=== PATIENT | female | born 1945 | race Caucasian/White ===

== ENCOUNTER 2018-01-22 09:02 | Inpatient (IN) | payer MEDICARE, MEDICAID ==
--- NOTE | 2018-01-22 09:54 | ED Physician Chart ---
ED Chief Complaint/HPI - Patient Information Date Seen:: 01/22/18 Time Seen:: 09:48 Chief Complaint:: Confusion History of Present Illness:: 72 yo [place]araguan-speaking female was found lost on street by bystanders. She was then brought by police to ER for further evaluation and management. Patient was put on 5150 hold. Patient said she had some headache. She also had a wound on the left lower extremity. Allergies:: Allergies Allergy/AdvReac Type Severity Reaction Status Date / Time No Known Allergies Allergy Verified 01/22/18 09:26 Vitals:: Vital Signs - 8 hr 01/22/18 09:19 Temp 98.1 F HR 62 RR 16 BP 167/74 O2 Sat % 98 ED Review of Systems - Review of Systems General/Constitutional: No fever, No weakness Skin: No bruising Head: Headache Eyes: No pain ENT: No nasal drainage Neck: No neck pain Cardio Vascular: No chest pain Pulmonary: No SOB GI: No nausea, No vomiting Musculoskeletal: No bone or joint pain Neurological: No focal symptoms ED Past Medical History - Past Medical History Social History: Non Smoker, No Alcohol, No Drug Use Family Medical History - Family Member Mother History Unknown: Yes Ethnicity: Unknown Living Status: ED Physical Exam - Physical Examination General/Constitutional: Awake Head: Atraumatic Eyes: PERRL Skin: No ecchymosis ENMT: Nasal exam nl Neck: No nuchal rigidity Respiratory: No Wheeze/Rhonchi/Rales Cardio Vascular: RRR, No murmur, gallop, rubs, NL S1 S2 GI: No tenderness/rebounding/guarding Extremities: normal strength in all extremities Other Extremities comments:: left lateral distal leg a large ulcer (3cm x 3cm) stage II with small amount of purulent drainage Other Neuro/Psych comments:: oriented to self only ED Labs/Radiology/EKG Results - Lab Results Results: Lab - Result Diagrams 01/22/18 10:00 01/22/18 10:00 Laboratory Last Values WBC 7.2 Th/cmm (4.8-10.8) 01/22/18 10:00 RBC 4.74 Mil/cmm (3.80-5.20) 01/22/18 10:00 Hgb 15.7 gm/dL (12-16) 01/22/18 10:00 Hct 46.6 % (41.0-60) 01/22/18 10:00 MCV 98.3 fl (81-100) 01/22/18 10:00 MCH 33.2 pg (27.0-31.0) H 01/22/18 10:00 MCHC Differential 33.7 pg (28.0-36.0) 01/22/18 10:00 RDW 12.9 % (11.5-20.0) 01/22/18 10:00 Plt Count 234 Th/cmm (150-400) 01/22/18 10:00 MPV 9.5 fl 01/22/18 10:00 Neutrophils % 59.8 % (40.0-80.0) 01/22/18 10:00 Lymphocytes % 26.7 % (20.0-50.0) 01/22/18 10:00 Monocytes % 10.0 % (2.0-10.0) 01/22/18 10:00 Eosinophils % 2.6 % (0.0-5.0) 01/22/18 10:00 Basophils % 0.9 % (0.0-2.0) 01/22/18 10:00 Sodium 141 mEq/L (136-145) 01/22/18 10:00 Potassium 4.0 mEq/L (3.5-5.1) 01/22/18 10:00 Chloride 106 mEq/L (98-107) 01/22/18 10:00 Carbon Dioxide 28.5 mEq/L (21.0-31.0) 01/22/18 10:00 Anion Gap 10.5 (7.0-16.0) 01/22/18 10:00 BUN 19 mg/dL (7-25) 01/22/18 10:00 Creatinine 1.0 mg/dL (0.6-1.2) 01/22/18 10:00 Est GFR ( Amer) TNP 01/22/18 10:00 Est GFR (Non-Af Amer) TNP 01/22/18 10:00 BUN/Creatinine Ratio 19.0 01/22/18 10:00 Glucose 94 mg/dL (70-105) 01/22/18 10:00 Calcium 9.5 mg/dL (8.6-10.3) 01/22/18 10:00 Total Bilirubin 0.6 mg/dL (0.3-1.0) 01/22/18 10:00 AST 26 U/L (13-39) 01/22/18 10:00 ALT 19 U/L (7-52) 01/22/18 10:00 Alkaline Phosphatase 88 U/L (34-104) 01/22/18 10:00 Troponin I 0.03 ng/mL (0.01-0.05) 01/22/18 10:00 B-Natriuretic Peptide 91.7 pg/mL (5.0-100.0) 01/22/18 10:00 Total Protein 7.5 gm/dL (6.0-8.3) 01/22/18 10:00 Albumin 3.9 gm/dL (3.7-5.3) 01/22/18 10:00 Globulin 3.6 gm/dL 01/22/18 10:00 Albumin/Globulin Ratio 1.1 (1.0-1.8) 01/22/18 10:00 Urine Source RANDOM 01/22/18 10:25 Urine Color YELLOW 01/22/18 10:25 Urine Clarity TURBID (CLEAR) H 01/22/18 10:25 Urine pH 7.0 (4.6 - 8.0) 01/22/18 10:25 Ur Specific [place] 1.015 (1.005-1.030) 01/22/18 10:25 Urine Protein NEGATIVE mg/dL (NEGATIVE) 01/22/18 10:25 Urine Glucose (UA) NEGATIVE mg/dL (NEGATIVE) 01/22/18 10:25 Urine Ketones NEGATIVE mg/dL (NEGATIVE) 01/22/18 10:25 Urine Blood TRACE (NEGATIVE) 01/22/18 10:25 Urine Nitrate NEGATIVE (NEGATIVE) 01/22/18 10:25 Urine Bilirubin NEGATIVE (NEGATIVE) 01/22/18 10:25 Urine Urobilinogen 0.2 E.U./dL (0.2 - 1.0) 01/22/18 10:25 Ur Leukocyte Esterase TRACE (NEGATIVE) H 01/22/18 10:25 Urine RBC 2-5 /hpf (0-5) 01/22/18 10:25 Urine WBC 2-5 /hpf (0-5) 01/22/18 10:25 Ur Epithelial Cells OCCASIONAL /lpf (FEW) 01/22/18 10:25 Amorphous Sediment FEW URATES (NONE SEEN) 01/22/18 10:25 Urine Bacteria 1+ /hpf (NONE SEEN) H 01/22/18 10:25 Urine Mucus FEW /lpf (FEW) 01/22/18 10:25 Urine Opiates Screen NEGATIVE (NEGATIVE) 01/22/18 10:25 Urine Methadone Screen NEGATIVE (NEGATIVE) 01/22/18 10:25 Ur Barbiturates Screen NEGATIVE (NEGATIVE) 01/22/18 10:25 Ur Tricyclics Screen NEGATIVE (NEGATIVE) 01/22/18 10:25 Ur Phencyclidine Scrn NEGATIVE (NEGATIVE) 01/22/18 10:25 Amphetamines Screen NEGATIVE (NEGATIVE) 01/22/18 10:25 U Methamphetamines Scrn NEGATIVE (NEGATIVE) 01/22/18 10:25 U Benzodiazepines Scrn NEGATIVE (NEGATIVE) 01/22/18 10:25 U Cocaine Metab Screen NEGATIVE (NEGATIVE) 01/22/18 10:25 U Cannabinoids Screen NEGATIVE (NEGATIVE) 01/22/18 10:25 - Radiology Results Results: CXR: increased interstitial lung markings, congestion, mild cardiomegaly CT head without contrast: No acute intracranial hemorrhage. Atrophy. Mild supratentorial white matter disease. Small parenchymal calcifications. Shrunken left globe - EKG Interpretations EKG Time:: 10:05 Rate & Rhythm: 52 bpm, sinus rhythm Ephraim: normal axis Intervals: atypical LBBB ED Assessment - Assessment General Assessment: UTI Left lower extremity wound Hypertension Dementia 5150 hold Assessment/Comments:: CBC, CMP, UA CXR, EKG CT head Left lower extremity wound care Wound culture Rocephin 1g IM Admit to geropsych unit ED Septic Shock - . Is Septic Shock (SBP<90, OR Lactate>4 mmol\L) present?: No - <6hrs of presentation: Vital Signs: Vital Signs - 8 hr 01/22/18 09:19 Temp 98.1 F HR 62 RR 16 BP 167/74 O2 Sat % 98 ED Reassessment (Disposition) - Reassessment Reassessment Condition:: Improved - Patient Disposition Discharge/Transfer:: [place] w/in this hosp Admitting Medical Physician:: [place] Admitting Psych Physician:: Malka Veras ED Discharge Plan - Patient Disposition Admit/Discharge/Transfer: Other Care w/in this hosp Condition at Disposition: Stable
[2018-01-22 10:14] LABS: % BASOPHILS 0.9 % (0.0-2.0); % EOSINOPHILS 2.6 % (0.0-5.0); % LYMPHOCYTES 26.7 % (20.0-50.0); % NEUTROPHILS 59.8 % (40.0-80.0); BASOPHILE ABSOLUTE 0.1 Th/cumm (0-0.2); EOSINOPHILE ABSOLUTE 0.2 Th/cmm (0.1-0.4); HEMATOCRIT 46.6 % (41.0-60); HEMOGLOBIN 15.7 gm/dL (12-16); LYMPHOCYTE ABSOLUTE 1.9 Th/cmm (1.5-3.0); MEAN CELL VOLUME 98.3 fl (81-100); MEAN CORPUSCULAR HEMOGLOBIN 33.2 pg (27.0-31.0); MEAN CORPUSCULAR HGB CONC 33.7 pg (28.0-36.0); MEAN PLATELET VOLUME 9.5 fl; MONOCYTE ABSOLUTE 0.7 Th/cmm (0.3-1.0); NEUTROPHILE ABSOLUTE 4.3 Th/cmm (1.8-8.0); PLATELET COUNT 234 Th/cmm (150-400); RED BLOOD COUNT 4.74 Mil/cmm (3.80-5.20); RED CELL DISTRIBUTION WIDTH 12.9 % (11.5-20.0); WHITE BLOOD COUNT 7.2 Th/cmm (4.8-10.8)
[2018-01-22 10:43] LABS: ALB/GLOB RATIO 1.1 (1.0-1.8); ALBUMIN 3.9 gm/dL (3.7-5.3); ALKALINE PHOSPHATASE 88 U/L (34-104); ANION GAP 10.5 (7.0-16.0); BILIRUBIN,TOTAL 0.6 mg/dL (0.3-1.0); BUN - UREA NITROGEN 19 mg/dL (7-25); CALCIUM SERUM 9.5 mg/dL (8.6-10.3); CARBON DIOXIDE 28.5 mEq/L (21.0-31.0); CHLORIDE 106 mEq/L (98-107); GLUCOSE 94 mg/dL (70-105); SGOT 26 U/L (13-39); SGPT/ALT 19 U/L (7-52); SODIUM SERUM 141 mEq/L (136-145); TOTAL PROTEIN,SERUM 7.5 gm/dL (6.0-8.3)
[2018-01-22 10:46] LABS: URINE MICROSCOPIC INDICATED? YES; URINE SOURCE RANDOM
[2018-01-22 10:51] LABS: URINE BILIRUBIN NEGATIVE (NEGATIVE); URINE BLOOD TRACE (NEGATIVE); URINE GLUCOSE (UA) NEGATIVE (NEGATIVE); URINE KETONE NEGATIVE (NEGATIVE); URINE LEUKOCYTE ESTERASE TRACE (NEGATIVE); URINE NITRATE NEGATIVE (NEGATIVE); URINE PROTEIN NEGATIVE (NEGATIVE); URINE UROBILINOGEN 0.2 E.U./dL (0.2 - 1.0)
[2018-01-22 10:58] LABS: URINE CLARITY TURBID (CLEAR); URINE COLOR YELLOW
[2018-01-22 11:00] LABS: URINE EPITHELIAL CELLS OCCASIONAL /lpf (FEW)
[2018-01-22 11:01] LABS: URINE AMORPHOUS SEDIMENT FEW URATES (NONE SEEN); URINE BACTERIA 1+ /hpf (NONE SEEN)
[2018-01-22 11:17] LABS: AMPHETAMINE URINE NEGATIVE (NEGATIVE); BARBITURATES URINE NEGATIVE (NEGATIVE); BENZODIAZEPINES QUAL URINE NEGATIVE (NEGATIVE); CANNABINOID THC NEGATIVE (NEGATIVE); COCAINE METABOLITE QUAL URINE NEGATIVE (NEGATIVE); METHADONE URINE NEGATIVE (NEGATIVE); METHAMPHETAMINES QUAL URINE NEGATIVE (NEGATIVE); OPIATES (MORPHINE) QUAL. URINE NEGATIVE (NEGATIVE); PHENCYCLIDINE (PCP) URINE NEGATIVE (NEGATIVE); TRICYCLICS (TCA) QUAL. URINE NEGATIVE (NEGATIVE)
--- NOTE | 2018-01-22 11:18 | Diagnostic Imaging Report ---
CHEST X-RAY: AP view INDICATION: Shortness of breath COMPARISON: None FINDINGS: Mild increased interstitial lung markings are noted. No focal consolidation or effusions. Mild cardiomegaly is noted with atherosclerosis. Degenerative changes of the spine and shoulders are noted. IMPRESSION: Mild increased interstitial lung markings which may be due to chronic lung changes, however, a marginal degree of congestion cannot be excluded. No focal airspace consolidation identified. Mild cardiomegaly with atherosclerosis.
--- NOTE | 2018-01-22 11:24 | Diagnostic Imaging Report ---
Head CT without intravenous contrast Indication: Headache Comparison: None Technique: Axial images were obtained from the vertex to the skull base without IV contrast. Coronal reconstructions were made. Total DLP: 557, CTDI31.3 FINDINGS: Images of the brain obtained without contrast demonstrate no evidence of an acute hemorrhage. A few scattered small calcifications are noted. Atrophy is noted. The ventricles and basal cisterns are patent. No mass effect or midline shift. Mild white matter disease is noted. Mild atherosclerotic vascular disease is noted. Shrunken and calcified left globe is noted with postsurgical changes. No evidence of a skull fracture or focal soft tissue swelling there is mild mucosal thickening in paranasal sinuses. IMPRESSION: No evidence of an acute intracranial hemorrhage. Atrophy. Mild supratentorial white matter disease which is nonspecific and may be due to chronic microvessel ischemia. 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 Shrunken left globe with calcification and postsurgical changes, please correlate with clinical history. Mild atherosclerotic vascular disease.
[2018-01-22 14:30] VITALS: BP 137/78
[2018-01-22] MEDS ORDERED: Maalox 30 mL Cup PO PRN (14:31)
[2018-01-22] MEDS ORDERED: Magnesium Hydroxide (MOM) 30 mL UDC PO PRN (14:31)
[2018-01-22 18:05] LABS: A1C % 5.4 % (4.0-6.0)
[2018-01-23] MEDS: Multivitamin Tab PO SCH (09:46)
[2018-01-23] MEDS: Venelex 60gm Tube TP SCH (13:56)
--- NOTE | 2018-01-24 06:06 | History & Physical ---
ADMIT DATE: 01/22/2018 REASON FOR ADMISSION: Psychiatric disorder. HISTORY OF PRESENT ILLNESS: This is a 72-year-old female admitted to Geropsych Unit for underlying psychiatric illness by Dr. Veras. Dr. Veras requested medical H and P on this patient. The patient has underlying history of hypertension. The patient denies any medical complaints or concerns. PAST MEDICAL HISTORY: Hypertension, dementia, psych disorder, insomnia. PAST SURGICAL HISTORY: No significant past surgeries. SOCIAL HISTORY: Lives at home. No reported alcohol, tobacco, or street drug use. CURRENT MEDICATIONS: Tylenol, Maalox, Aricept, Ativan, milk of magnesia, Lopressor, Theragran, Ambien. REVIEW OF SYSTEMS: per HPI, a 12-point system appears negative. PHYSICAL EXAMINATION: VITAL SIGNS: Temperature 98.0, pulse 55, respirations 20, blood pressure ____ on room air. Pain 0/10. GENERAL APPEARANCE: The patient does not seem in acute distress. HEENT: Unremarkable. HEART: S1 and S2 normal. LUNGS: Clear to auscultation. ABDOMEN: Soft, nontender. NEUROLOGIC: The patient is awake, but somewhat confused. Follows commands. EXTREMITIES: No edema noted. AVAILABLE LABORATORY DATA: Reviewed. ASSESSMENT: 1. Hypertension. 2. Dementia. 3. Insomnia. 4. Mental disorder. PLAN: The patient will continue Lopressor. Continue Aricept. Psych management per psychiatrist. Monitor vitals. Fall precautions will be given. The patient's condition and plan of care discussed with nursing staff. The patient is medically stable to participate in activities of Geropsych Unit. Thank you Dr. Veras for allowing me participate in the care of this patient. JOB# [id number]
[2018-01-24] MEDS: Multivitamin Tab PO SCH (08:46)
[2018-01-24] MEDS: Venelex 60gm Tube TP SCH (08:47)
--- NOTE | 2018-01-24 18:08 | Psychosocial Evaluation ---
DATE OF SERVICE: 01/22/2018 PSYCHIATRIC INITIAL EVALUATION AND MENTAL STATUS EXAM AGE: 72. SEX: Female. PHYSICIAN: Dr. Veras. CHIEF COMPLAINT: 5150 hold for grave disability. HISTORY OF PRESENT ILLNESS: The patient was placed on 5150 hold by [facility] for grave disability. The patient was walking in the middle of a busy freeway regardless of her safety, but also was confused and was disoriented and she was not able to give the officers any safe plan for self-care. Also she was not able to tell where is her address or when was the last time she ate. The patient also 2 weeks. The patient also had no ID or money or any belonging. Chart reviewed and the patient interviewed and discussed the patient's condition with the staff. The patient is confused. She is [place]ian speaking and she was not able to give any directions or instructions about her current condition or above eating or drinking or how she can survive. The patient also is not able to give any information about any medical history except the patient was complaining of some headache upon arrival to the Emergency Room. PAST PSYCHIATRIC HISTORY: Not known. PAST MEDICAL HISTORY: Not known. SOCIAL HISTORY: Not clear at this time much history about the patient. No known alcohol or street drug use. ALLERGIES: No known allergies. MENTAL STATUS EXAMINATION: The patient appears older than her stated age. Disheveled. Anxious. Flat affect. In a depressed mood. Seems to be confused. The patient's speaks only [place]ian. The patient did not answer questions regarding hallucinations or delusions, but the patient seems to be responding. The patient denies any suicide or homicide. The patient is alert and oriented to situation, but not to the place or person or date. Impaired immediate and recent memories, but intact remote memory and she remember the date. Poor insight and poor judgment. ASSESSMENT: PRIMARY DIAGNOSIS: Unspecified psychosis. SECONDARY DIAGNOSIS: Dementia, moderate to severe. TREATMENT PLAN: We will monitor the patient's behavior and her condition closely. We will try to get more information of the patient. Also, we will assess the patient's condition more and try to evaluate current living situation. ESTIMATED LENGTH OF STAY: 5-7 days. THE PATIENT'S STRENGTHS AND WEAKNESSES: The patient's strength is not clear at this time except that she seems to be in relatively fair health. Weaknesses is her confusion and her inability to provide safe plan for self-care. AFTER DISCHARGE PLAN: The patient will need placement and outpatient treatment and followup will continue as an outpatient. CRITERIA FOR DISCHARGE: The patient will not be psychotic and will stabilize psychotropic medications and we will establish safe plan for her self-care. [facility]# [id number]
--- NOTE | 2018-01-24 23:49 | Progress Notes ---
DATE: 01/24/2018 SUBJECTIVE: The patient was seen and evaluated. The patient's chart reviewed. This is Dr. Prajapati covering for Dr. Veras. She is a 72-year-old female, who was apparently here with a history of severe dementia. Nursing staff reporting the patient mostly being confused, derails in conversation, and minimally interactive. CURRENT MEDICATIONS: Reviewed. She is currently on Ativan as needed, metoprolol, multivitamins, and Aricept (donepezil) 10 mg a day. Today on vvgv-dd-iote evaluation, the patient is sitting quietly. She reports she lives with her sister, but is not able to elaborate much more beyond that. She does not know why she is in the hospital. She gets anxious and confused during the interview. MENTAL STATUS EXAMINATION: Disorganized, memory impaired. ASSESSMENT AND PLAN: The patient is a 72-year-old female neurocognitively impaired with dementia. We will continue with Aricept at 10 mg and we will obtain more collateral baseline information and we established also baseline regarding the patient's mood. She may potentially benefit a low dose of antidepressant. JOB# [id number]
[2018-01-25] MEDS: Multivitamin Tab PO SCH (09:35)
[2018-01-25] MEDS: Venelex 60gm Tube TP SCH (09:37)
--- NOTE | 2018-01-25 18:23 | Progress Notes ---
DATE: 01/25/2018 SUBJECTIVE: The patient was seen and evaluated. The patient's chart reviewed. Overnight, nursing staff reported the patient continues to be very confused. Today on vwel-jg-knut evaluation, the patient reports that she is waiting for her family. She reports she is here for pain. Does not give much more information beyond that as the conversation derailed from circumstantial to another topic. MENTAL STATUS EXAMINATION: Disorganized, severe memory impairment. ASSESSMENT AND PLAN: A 72-year-old female with neurocognitive impair, unable to formulate a plan. We will continue with Aricept at 10 mg to target the patient's severe dementia information from her family and baseline in regard to her mood. JOB# [id number]
--- NOTE | 2018-01-25 21:18 | General Progress Note ---
Subjective - Review of Systems Service Date: 01/25/18 Subjective: patient doing fine denied any complaints Objective - Results Result Diagrams: 01/22/18 10:00 01/22/18 10:00 Recent Labs: Laboratory Last Values WBC 7.2 Th/cmm (4.8-10.8) 01/22/18 10:00 RBC 4.74 Mil/cmm (3.80-5.20) 01/22/18 10:00 Hgb 15.7 gm/dL (12-16) 01/22/18 10:00 Hct 46.6 % (41.0-60) 01/22/18 10:00 MCV 98.3 fl (81-100) 01/22/18 10:00 MCH 33.2 pg (27.0-31.0) H 01/22/18 10:00 MCHC Differential 33.7 pg (28.0-36.0) 01/22/18 10:00 RDW 12.9 % (11.5-20.0) 01/22/18 10:00 Plt Count 234 Th/cmm (150-400) 01/22/18 10:00 MPV 9.5 fl 01/22/18 10:00 Neutrophils % 59.8 % (40.0-80.0) 01/22/18 10:00 Lymphocytes % 26.7 % (20.0-50.0) 01/22/18 10:00 Monocytes % 10.0 % (2.0-10.0) 01/22/18 10:00 Eosinophils % 2.6 % (0.0-5.0) 01/22/18 10:00 Basophils % 0.9 % (0.0-2.0) 01/22/18 10:00 Sodium 141 mEq/L (136-145) 01/22/18 10:00 Potassium 4.0 mEq/L (3.5-5.1) 01/22/18 10:00 Chloride 106 mEq/L (98-107) 01/22/18 10:00 Carbon Dioxide 28.5 mEq/L (21.0-31.0) 01/22/18 10:00 Anion Gap 10.5 (7.0-16.0) 01/22/18 10:00 BUN 19 mg/dL (7-25) 01/22/18 10:00 Creatinine 1.0 mg/dL (0.6-1.2) 01/22/18 10:00 Est GFR ( Amer) TNP 01/22/18 10:00 Est GFR (Non-Af Amer) TNP 01/22/18 10:00 BUN/Creatinine Ratio 19.0 01/22/18 10:00 Glucose 94 mg/dL (70-105) 01/22/18 10:00 Hemoglobin A1c % 5.4 % (4.0-6.0) 01/22/18 10:00 Calcium 9.5 mg/dL (8.6-10.3) 01/22/18 10:00 Total Bilirubin 0.6 mg/dL (0.3-1.0) 01/22/18 10:00 AST 26 U/L (13-39) 01/22/18 10:00 ALT 19 U/L (7-52) 01/22/18 10:00 Alkaline Phosphatase 88 U/L (34-104) 01/22/18 10:00 Troponin I 0.03 ng/mL (0.01-0.05) 01/22/18 10:00 B-Natriuretic Peptide 91.7 pg/mL (5.0-100.0) 01/22/18 10:00 Total Protein 7.5 gm/dL (6.0-8.3) 01/22/18 10:00 Albumin 3.9 gm/dL (3.7-5.3) 01/22/18 10:00 Globulin 3.6 gm/dL 01/22/18 10:00 Albumin/Globulin Ratio 1.1 (1.0-1.8) 01/22/18 10:00 TSH 1.68 uIU/ml (0.34-5.60) 01/22/18 10:00 Urine Source RANDOM 01/22/18 10:25 Urine Color YELLOW 01/22/18 10:25 Urine Clarity TURBID (CLEAR) H 01/22/18 10:25 Urine pH 7.0 (4.6 - 8.0) 01/22/18 10:25 Ur Specific [place] 1.015 (1.005-1.030) 01/22/18 10:25 Urine Protein NEGATIVE mg/dL (NEGATIVE) 01/22/18 10:25 Urine Glucose (UA) NEGATIVE mg/dL (NEGATIVE) 01/22/18 10:25 Urine Ketones NEGATIVE mg/dL (NEGATIVE) 01/22/18 10:25 Urine Blood TRACE (NEGATIVE) 01/22/18 10:25 Urine Nitrate NEGATIVE (NEGATIVE) 01/22/18 10:25 Urine Bilirubin NEGATIVE (NEGATIVE) 01/22/18 10:25 Urine Urobilinogen 0.2 E.U./dL (0.2 - 1.0) 01/22/18 10:25 Ur Leukocyte Esterase TRACE (NEGATIVE) H 01/22/18 10:25 Urine RBC 2-5 /hpf (0-5) 01/22/18 10:25 Urine WBC 2-5 /hpf (0-5) 01/22/18 10:25 Ur Epithelial Cells OCCASIONAL /lpf (FEW) 01/22/18 10:25 Amorphous Sediment FEW URATES (NONE SEEN) 01/22/18 10:25 Urine Bacteria 1+ /hpf (NONE SEEN) H 01/22/18 10:25 Urine Mucus FEW /lpf (FEW) 01/22/18 10:25 Urine Opiates Screen NEGATIVE (NEGATIVE) 01/22/18 10:25 Urine Methadone Screen NEGATIVE (NEGATIVE) 01/22/18 10:25 Ur Barbiturates Screen NEGATIVE (NEGATIVE) 01/22/18 10:25 Ur Tricyclics Screen NEGATIVE (NEGATIVE) 01/22/18 10:25 Ur Phencyclidine Scrn NEGATIVE (NEGATIVE) 01/22/18 10:25 Amphetamines Screen NEGATIVE (NEGATIVE) 01/22/18 10:25 U Methamphetamines Scrn NEGATIVE (NEGATIVE) 01/22/18 10:25 U Benzodiazepines Scrn NEGATIVE (NEGATIVE) 01/22/18 10:25 U Cocaine Metab Screen NEGATIVE (NEGATIVE) 01/22/18 10:25 U Cannabinoids Screen NEGATIVE (NEGATIVE) 01/22/18 10:25 RPR NONREACTIVE (NONREACTIVE) 01/22/18 10:00 - Physical Exam Vitals and I&O: Vital Signs Temp 98.8 F 01/25/18 20:22 Pulse 58 01/25/18 20:22 Resp 19 01/25/18 20:22 BP 129/78 01/25/18 20:22 Pulse Ox 97 01/25/18 20:22 Intake & Output 01/25/18 01/25/18 01/26/18 06:59 18:59 06:59 Intake Total 480 900 240 Balance 480 900 240 Intake: Oral 480 900 240 Other: # Voids 1 4 1 # Bowel Movements 1 Active Medications: Current Medications Acetaminophen (Tylenol) 650 mg PO Q4HR PRN PRN Reason: Mild Pain / Temp above 100 Stop: 03/23/18 14:30 Al Hydrox/Mg Hydrox/Simethicone (Maalox) 30 ml PO Q4HR PRN PRN Reason: GI DISTRESS Stop: 03/23/18 14:30 Belen Oil/Belarusian Balsam/Trypsin (Venelex) 1 appl TP DAILY AKILAH Stop: 03/24/18 11:59 Last Admin: 01/25/18 09:37 Dose: 1 appl Donepezil HCl (Aricept) 10 mg PO HS AKILAH Stop: 03/24/18 22:59 Last Admin: 01/24/18 21:11 Dose: 10 mg Lorazepam (Ativan) 0.5 mg PO Q4HR PRN; Protocol PRN Reason: Agitation Stop: 02/21/18 14:30 Magnesium Hydroxide (Milk Of Magnesia) 30 ml PO HS PRN PRN Reason: Constipation Metoprolol Tartrate (Lopressor) 25 mg PO DAILY AKILAH Stop: 03/25/18 08:59 Last Admin: 01/25/18 09:35 Dose: 25 mg Multivitamins/Vitamin C (Theragran) 1 tab PO DAILY AKILAH Stop: 03/24/18 08:59 Last Admin: 01/25/18 09:35 Dose: 1 tab Zolpidem Tartrate (Ambien) 5 mg PO HS PRN PRN Reason: Insomnia Stop: 03/23/18 14:30 Lungs: Clear to auscultation Assessment/Plan - Assessment Assessment: HTN Alzheimers dementia Psych disorder - Plan Plan: Patient doing better Continue current treatment Nutritional Asmnt/Malnutr-PDOC - Dietary Evaluation Malnutrition Findings (Please click <Entered> for more info): Nutritional Asmnt/Malnutrition Start: 01/23/18 16: 30 Text: Status: Complete Freq: Document 01/23/18 16:30 HEN (Rec: 01/23/18 16:39 HEN [email or web address]) Nutritional Asmnt/Malnutrition Patient General Information Nutritional Screening Low Risk Consult Diagnosis psychosis Pertinent Medical Hx/Surgical Hx no medical hx indicated in MD reports. Subjective Information Consult received for left lateral ankle ulcer poss arterial insufficient. Pt was in bathroom at time of visit, [place] speaking noted. Spoke with nurse, Pt consumed 100% of breakfast and lunch. Current Diet Order/ Nutrition Support regular Pertinent Medications theragran Pertinent Labs 01/22 nutrition labs WNL Nutritional Hx/Data Height 1.57 m Height (Calculated Centimeters) 157.5 Current Weight (lbs) 68.946 kg Weight (Calculated Kilograms) 68.9 Weight (Calculated Grams) 65316.0 [place] Body Weight 110 Body Mass Index (BMI) 27.8 Weight Status Overweight GI Symptoms GI Symptoms None Last BM not indicated Difficult in: None Skin Integrity/Comment: Left Lateral Malleolus: possible arterial insufficiency ulcer per wound care note Current %PO Good (75-100%) Estimated Nutritional Goals Calories/Kcals/Kg 25-30 Kcals Calculated 2621-0043 Protein g/k-1.2 Protein Calculated 50-60 Fluid: ml 1250-1500ml (1ml/kcal) Nutritional Problem 1. Problem Problem increased nutrition needs Etiology impaired skin integrity Signs/Symptoms: arterial insufficiency ulcer Malnutrition Alert Is there a minimum of two criteria No selected? Query Text:Check all the applicable criteria. A minimum of two criteria are recommended for diagnosis of either severe or non-severe malnutrition. Malnutrition Related to Morbid Obesity Malnutrition related to morbid obesity No Intervention/Recommendation Comments 1. Continue with current diet as ordered. 2. Monitor PO intake, wt, labs and skin integrity 3. F/U as moderate risk in 3-5 days, 01/26-01/28 Expected Outcomes/Goals Expected Outcomes/Goals 1. PO intake to meet at least 75% of nutritional needs. 2. Wt stability, skin integrity to improve, labs to approach WNL.
--- NOTE | 2018-01-26 08:24 | Progress Notes ---
DATE: 01/26/2018 The patient was seen and evaluated. The patient's chart reviewed. Overnight nursing staff reported the patient continues to be confused, wandering in the wheelchair. Covering for Dr. Veras. Today on [id number]-ol-unov evaluation, the patient does not give much more information. She looks around and starts walking in her wheelchair. MENTAL STATUS EXAMINATION: Disorganized, severe memory impairment. ASSESSMENT AND PLAN: A 72-year-old female with a history of neurocognitive impairment, unable to formulate a safe plan. We will continue with her current medication regimen to target the patient's severe dementia, also we will obtain more collateral baseline information to the patient's disorganized thought process and confusion secondary to the dementia, impairs the ability to provide food and usp outside the structured environment. JOB# [id number]
[2018-01-26] MEDS: Multivitamin Tab PO SCH (09:26)
[2018-01-26] MEDS: Venelex 60gm Tube TP SCH (09:32)
[2018-01-27] MEDS: Multivitamin Tab PO SCH (08:58)
[2018-01-27] MEDS: Venelex 60gm Tube TP SCH (08:58)
--- NOTE | 2018-01-27 21:02 | General Progress Note ---
Subjective - Review of Systems Service Date: 01/27/18 Subjective: patient doing fine no reported concern Objective - Results Result Diagrams: 01/22/18 10:00 01/22/18 10:00 Recent Labs: Laboratory Last Values WBC 7.2 Th/cmm (4.8-10.8) 01/22/18 10:00 RBC 4.74 Mil/cmm (3.80-5.20) 01/22/18 10:00 Hgb 15.7 gm/dL (12-16) 01/22/18 10:00 Hct 46.6 % (41.0-60) 01/22/18 10:00 MCV 98.3 fl (81-100) 01/22/18 10:00 MCH 33.2 pg (27.0-31.0) H 01/22/18 10:00 MCHC Differential 33.7 pg (28.0-36.0) 01/22/18 10:00 RDW 12.9 % (11.5-20.0) 01/22/18 10:00 Plt Count 234 Th/cmm (150-400) 01/22/18 10:00 MPV 9.5 fl 01/22/18 10:00 Neutrophils % 59.8 % (40.0-80.0) 01/22/18 10:00 Lymphocytes % 26.7 % (20.0-50.0) 01/22/18 10:00 Monocytes % 10.0 % (2.0-10.0) 01/22/18 10:00 Eosinophils % 2.6 % (0.0-5.0) 01/22/18 10:00 Basophils % 0.9 % (0.0-2.0) 01/22/18 10:00 Sodium 141 mEq/L (136-145) 01/22/18 10:00 Potassium 4.0 mEq/L (3.5-5.1) 01/22/18 10:00 Chloride 106 mEq/L (98-107) 01/22/18 10:00 Carbon Dioxide 28.5 mEq/L (21.0-31.0) 01/22/18 10:00 Anion Gap 10.5 (7.0-16.0) 01/22/18 10:00 BUN 19 mg/dL (7-25) 01/22/18 10:00 Creatinine 1.0 mg/dL (0.6-1.2) 01/22/18 10:00 Est GFR ( Amer) TNP 01/22/18 10:00 Est GFR (Non-Af Amer) TNP 01/22/18 10:00 BUN/Creatinine Ratio 19.0 01/22/18 10:00 Glucose 94 mg/dL (70-105) 01/22/18 10:00 Hemoglobin A1c % 5.4 % (4.0-6.0) 01/22/18 10:00 Calcium 9.5 mg/dL (8.6-10.3) 01/22/18 10:00 Total Bilirubin 0.6 mg/dL (0.3-1.0) 01/22/18 10:00 AST 26 U/L (13-39) 01/22/18 10:00 ALT 19 U/L (7-52) 01/22/18 10:00 Alkaline Phosphatase 88 U/L (34-104) 01/22/18 10:00 Troponin I 0.03 ng/mL (0.01-0.05) 01/22/18 10:00 B-Natriuretic Peptide 91.7 pg/mL (5.0-100.0) 01/22/18 10:00 Total Protein 7.5 gm/dL (6.0-8.3) 01/22/18 10:00 Albumin 3.9 gm/dL (3.7-5.3) 01/22/18 10:00 Globulin 3.6 gm/dL 01/22/18 10:00 Albumin/Globulin Ratio 1.1 (1.0-1.8) 01/22/18 10:00 TSH 1.68 uIU/ml (0.34-5.60) 01/22/18 10:00 Urine Source RANDOM 01/22/18 10:25 Urine Color YELLOW 01/22/18 10:25 Urine Clarity TURBID (CLEAR) H 01/22/18 10:25 Urine pH 7.0 (4.6 - 8.0) 01/22/18 10:25 Ur Specific [place] 1.015 (1.005-1.030) 01/22/18 10:25 Urine Protein NEGATIVE mg/dL (NEGATIVE) 01/22/18 10:25 Urine Glucose (UA) NEGATIVE mg/dL (NEGATIVE) 01/22/18 10:25 Urine Ketones NEGATIVE mg/dL (NEGATIVE) 01/22/18 10:25 Urine Blood TRACE (NEGATIVE) 01/22/18 10:25 Urine Nitrate NEGATIVE (NEGATIVE) 01/22/18 10:25 Urine Bilirubin NEGATIVE (NEGATIVE) 01/22/18 10:25 Urine Urobilinogen 0.2 E.U./dL (0.2 - 1.0) 01/22/18 10:25 Ur Leukocyte Esterase TRACE (NEGATIVE) H 01/22/18 10:25 Urine RBC 2-5 /hpf (0-5) 01/22/18 10:25 Urine WBC 2-5 /hpf (0-5) 01/22/18 10:25 Ur Epithelial Cells OCCASIONAL /lpf (FEW) 01/22/18 10:25 Amorphous Sediment FEW URATES (NONE SEEN) 01/22/18 10:25 Urine Bacteria 1+ /hpf (NONE SEEN) H 01/22/18 10:25 Urine Mucus FEW /lpf (FEW) 01/22/18 10:25 Urine Opiates Screen NEGATIVE (NEGATIVE) 01/22/18 10:25 Urine Methadone Screen NEGATIVE (NEGATIVE) 01/22/18 10:25 Ur Barbiturates Screen NEGATIVE (NEGATIVE) 01/22/18 10:25 Ur Tricyclics Screen NEGATIVE (NEGATIVE) 01/22/18 10:25 Ur Phencyclidine Scrn NEGATIVE (NEGATIVE) 01/22/18 10:25 Amphetamines Screen NEGATIVE (NEGATIVE) 01/22/18 10:25 U Methamphetamines Scrn NEGATIVE (NEGATIVE) 01/22/18 10:25 U Benzodiazepines Scrn NEGATIVE (NEGATIVE) 01/22/18 10:25 U Cocaine Metab Screen NEGATIVE (NEGATIVE) 01/22/18 10:25 U Cannabinoids Screen NEGATIVE (NEGATIVE) 01/22/18 10:25 RPR NONREACTIVE (NONREACTIVE) 01/22/18 10:00 - Physical Exam Vitals and I&O: Vital Signs Temp 97.5 F 01/27/18 06:18 Pulse 85 01/27/18 20:00 Resp 18 01/27/18 20:00 BP 179/85 01/27/18 08:58 Pulse Ox 99 01/27/18 06:18 Intake & Output 01/27/18 01/27/18 01/28/18 06:59 18:59 06:59 Intake Total 360 120 Balance 360 120 Intake: Oral 360 120 Other: # Voids 2 2 # Bowel Movements 0 Active Medications: Current Medications Acetaminophen (Tylenol) 650 mg PO Q4HR PRN PRN Reason: Mild Pain / Temp above 100 Stop: 03/23/18 14:30 Last Admin: 01/26/18 21:13 Dose: 650 mg Al Hydrox/Mg Hydrox/Simethicone (Maalox) 30 ml PO Q4HR PRN PRN Reason: GI DISTRESS Stop: 03/23/18 14:30 Burgaw Oil/Congolese Balsam/Trypsin (Venelex) 1 appl TP DAILY AKILAH Stop: 03/24/18 11:59 Last Admin: 01/27/18 08:58 Dose: 1 appl Donepezil HCl (Aricept) 10 mg PO HS AKILAH Stop: 03/24/18 22:59 Last Admin: 01/27/18 20:19 Dose: 10 mg Lorazepam (Ativan) 0.5 mg PO Q4HR PRN; Protocol PRN Reason: Agitation Stop: 02/21/18 14:30 Last Admin: 01/26/18 21:57 Dose: 0.5 mg Magnesium Hydroxide (Milk Of Magnesia) 30 ml PO HS PRN PRN Reason: Constipation Metoprolol Tartrate (Lopressor) 25 mg PO DAILY AKILAH Stop: 03/25/18 08:59 Last Admin: 01/27/18 08:58 Dose: 25 mg Multivitamins/Vitamin C (Theragran) 1 tab PO DAILY AKILAH Stop: 03/24/18 08:59 Last Admin: 01/27/18 08:58 Dose: 1 tab Zolpidem Tartrate (Ambien) 5 mg PO HS PRN PRN Reason: Insomnia Stop: 03/23/18 14:30 Last Admin: 01/27/18 20:19 Dose: 5 mg Cardiovascular: Regular rate Lungs: Clear to auscultation Assessment/Plan - Assessment Assessment: HTN Alzheimers dementia Psych disorder - Plan Plan: Patient doing better MAR reviewed Fall precaution Nutrional support Nutritional Asmnt/Malnutr-PDOC - Dietary Evaluation Malnutrition Findings (Please click <Entered> for more info): Nutritional Asmnt/Malnutrition Start: 01/23/18 16: 30 Text: Status: Complete Freq: Document 01/23/18 16:30 LCHENG (Rec: 01/23/18 16:39 LCHENG [id number]) Nutritional Asmnt/Malnutrition Patient General Information Nutritional Screening Low Risk Consult Diagnosis psychosis Pertinent Medical Hx/Surgical Hx no medical hx indicated in MD reports. Subjective Information Consult received for left lateral ankle ulcer poss arterial insufficient. Pt was in bathroom at time of visit, Mongolian speaking noted. Spoke with nurse, Pt consumed 100% of breakfast and lunch. Current Diet Order/ Nutrition Support regular Pertinent Medications theragran Pertinent Labs 01/22 nutrition labs WNL Nutritional Hx/Data Height 1.57 m Height (Calculated Centimeters) 157.5 Current Weight (lbs) 68.946 kg Weight (Calculated Kilograms) 68.9 Weight (Calculated Grams) 43786.0 [place] Body Weight 110 Body Mass Index (BMI) 27.8 Weight Status Overweight GI Symptoms GI Symptoms None Last BM not indicated Difficult in: None Skin Integrity/Comment: Left Lateral Malleolus: possible arterial insufficiency ulcer per wound care note Current %PO Good (75-100%) Estimated Nutritional Goals Calories/Kcals/Kg 25-30 Kcals Calculated 4618-7995 Protein g/k-1.2 Protein Calculated 50-60 Fluid: ml 1250-1500ml (1ml/kcal) Nutritional Problem 1. Problem Problem increased nutrition needs Etiology impaired skin integrity Signs/Symptoms: arterial insufficiency ulcer Malnutrition Alert Is there a minimum of two criteria No selected? Query Text:Check all the applicable criteria. A minimum of two criteria are recommended for diagnosis of either severe or non-severe malnutrition. Malnutrition Related to Morbid Obesity Malnutrition related to morbid obesity No Intervention/Recommendation Comments 1. Continue with current diet as ordered. 2. Monitor PO intake, wt, labs and skin integrity 3. F/U as moderate risk in 3-5 days, 01/26-01/28 Expected Outcomes/Goals Expected Outcomes/Goals 1. PO intake to meet at least 75% of nutritional needs. 2. Wt stability, skin integrity to improve, labs to approach WNL.
--- NOTE | 2018-01-28 00:57 | Progress Notes ---
DATE: 01/27/2018 SUBJECTIVE: The patient in the hospital, she was in the middle of [place] busy freeway, confused, disoriented, seems she may have a diagnosis of dementia. She remains fairly confused on exam. Family is at bedside. They are adamant about her leaving soon and they want to send her to [facility]. That is their goal, "she is not crazy. She does not need to be here." The patient with poor sleep, but due to noise, family concerned about her sleep. Family does not want to take her home. At this time they wanted to go to [facility]. ASSESSMENT: The patient is calm, cooperative, eating on her own, seems somewhat confused, poor sleep last night, but it seems there was some noise. PLAN: We will continue to monitor. I did discuss with the family. JOB# [id number]
[2018-01-28] MEDS: Multivitamin Tab PO SCH (09:31)
[2018-01-28] MEDS: Venelex 60gm Tube TP SCH (15:00)
[2018-01-29] MEDS: Multivitamin Tab PO SCH (10:13)
[2018-01-29] MEDS: Venelex 60gm Tube TP SCH (10:32)
--- NOTE | 2018-01-29 13:08 | Progress Notes ---
DATE: SUBJECTIVE: Chart reviewed and the patient interviewed. Also discussed the patient's condition with the staff and reviewed records and labs. The patient continued to be confused and is forgetful. The patient also is still having difficulty with her mood and easily agitated and easily irritable. The patient also continued to have multiple somatic complaints and is demanding and asking the staff to go to the restroom and the patient just came out of the restroom. Also family has been complaining that the patient has her needs not met in spite of staff trying to do their best to help the patient as well as her needs, but the patient is paranoid and is suspicious and is demanding. ASSESSMENT: The patient still needs close monitoring and needs to continue to work on her mood. TREATMENT PLAN: We will continue monitoring her behavior and her condition closely and the patient continued to take Aricept and we will add Namenda 5 mg twice a day and we will continue to work on behavioral modifications and her paranoia and we will continue to follow. [facility]# [id number]
[2018-01-30] MEDS: Venelex 60gm Tube TP SCH (09:30)
[2018-01-30] MEDS: Multivitamin Tab PO SCH (09:51)
--- NOTE | 2018-01-30 12:02 | Progress Notes ---
DATE: 01/30/2018 Case was discussed with staff of the patient, reviewed records. This is a 72-year-old female who was admitted on the 01/22/2018 on a hold for gait disability. The patient was walking in the middle of a busy freeway regardless for safety, confused, disoriented, unable to give much information or make safe plan for self-care, unable to give what her address was. She is Armenian speaking, unable to give information. I talked to the patient with radio operator ground. The patient continued to be confused, forgetful, demented, difficulty with her mood, easily agitated, irritable, continues to have multiple somatic complaints, demanding asking staff to go to the restroom. The family also complained at that time, the patient needs are not being met, the staff is doing their best to meet her needs. According to doctor of the patient though the patient tends to be paranoid and that makes it worse. It seemed like family does not understand the situation. She is on Aricept 10 mg at bedtime, Namenda 5 mg twice a day that was increased yesterday. No side effects with the medication, no sedation, no nausea and we will continue outpatient group therapy, milieu therapy, adjust medication as needed. JOB# [id number]
--- NOTE | 2018-01-30 14:38 | Progress Notes ---
DATE: 01/29/2018 SUBJECTIVE: Chart reviewed and the patient interviewed. Also discussed the patient's condition with the staff and reviewed records and labs. The patient is still confused and forgetful. The patient needs lots of redirections. The patient also seems to be in a depressed mood and interacting minimally with others. On the other hand, the patient seems to be less agitated and less irritable and she slept better last night. She also continued to comply with taking her medications. There are no side effects of medications. ASSESSMENT: The patient is still confused and psychotic, but seems to be less agitated. TREATMENT PLAN: We will continue to monitor behavior and condition closely. We will also continue Aricept 10 mg and the patient was started on Namenda 5 mg twice a day, which seems to be slightly helping the patient. We will continue to dose and continue to work on behavioral modification. JOB# [id number]
[2018-01-31] MEDS: Multivitamin Tab PO SCH (08:58)
[2018-01-31] MEDS: Venelex 60gm Tube TP SCH (08:59)
--- NOTE | 2018-01-31 19:02 | Progress Notes ---
DATE: 01/31/2018 SUBJECTIVE: The patient is currently in the hospital and placed on a hold, apparently walking in the middle of the freeway, confused, disoriented. Dr. Hauser seeing the patient in the past few days, noting that she remains forgetful, confused, disoriented, noted to be somewhat suspicious. Family would like the patient to go to [facility]. Efforts are being made for a safe transfer. The patient has been accepted to [facility] at this time. Medications were reviewed including dosages and frequencies. ASSESSMENT: The patient remains confused and disoriented. There are current concerns about safety due to her mood episodes, but she does seem to be somewhat calmer. PLAN: We will continue to monitor and follow up. [facility]# [id number]
[2018-02-01] MEDS: Multivitamin Tab PO SCH (09:22)
[2018-02-01] MEDS: Venelex 60gm Tube TP SCH (09:23)
--- NOTE | 2018-02-01 09:36 | Progress Notes ---
DATE: 02/01/2018 SUBJECTIVE: The patient states she is doing "pathetic." Complaining of leg pain, complaining of little __sleep__, had difficulty sleeping. She is eating okay. She remained somewhat disoriented, mildly suspicious, but she is seemingly calmer, more cooperative, mostly in her home. I spoke with family, who comes to visit. Family very involved. No agitation, no escalation of behaviors. ASSESSMENT: The patient is pleasant on exam, confusion, disorientation, but no agitation, no combative behaviors. PLAN: We will recommend transfer to [facility]. The patient seems to be approaching her baseline and improvement noted. JOB# [id number] MARCIANO
[2018-02-02] MEDS: Multivitamin Tab PO SCH (08:51)
[2018-02-02] MEDS: Venelex 60gm Tube TP SCH (08:52)
[2018-02-03] MEDS: Multivitamin Tab PO SCH (08:31)
[2018-02-03] MEDS: Venelex 60gm Tube TP SCH (09:01)
--- NOTE | 2018-02-03 20:38 | Progress Notes ---
DATE: 02/02/2018 Chart reviewed and the patient interviewed. Also, discussed the patient's condition with the staff and reviewed records and labs. The patient continued to be confused and easily agitated. The patient also continued to ask the same question over and over and have disorganized thoughts and confused. The patient also is still easily agitated. She also is isolative and wants to be left alone. On the other hand, the patient is compliant with taking her medications with no side effects of medications. ASSESSMENT: The patient is still confused and psychotic. TREATMENT PLAN: Continue to monitor her behavior and her condition closely. Also, continue adjusting psychotropic medications and continue to work on discharge plans. JOB# [id number]
--- NOTE | 2018-02-04 02:11 | Progress Notes ---
DATE: 02/03/2018 SUBJECTIVE: Chart reviewed and the patient interviewed. Also discussed the patient's condition with the staff and reviewed records and labs. The patient is still confused. The patient also is still withdrawn and she needs lots of redirections and seems like slightly easier to redirect her. Also, it seems that her yelling and screaming and agitation are less than before. The patient also is not wandering around the unit as she was before. She also continues to comply with taking her medications with no side effects of Aricept or Namenda. ASSESSMENT: The patient seems to be calmer than before. TREATMENT PLAN: We will continue Aricept and Namenda, same dose. Also, continue to work with shoe caser in regard to discharge plans and placement issue. JOB# [id number]
[2018-02-04] MEDS: Venelex 60gm Tube TP SCH (09:35)
[2018-02-04] MEDS: Multivitamin Tab PO SCH (09:37)
--- NOTE | 2018-02-05 08:00 | Progress Notes ---
DATE: SUBJECTIVE: Chart reviewed and the patient interviewed. Also discussed the patient's condition with the staff and reviewed records and labs. The patient remains in a depressed mood. Also, the patient's affect is flat. The patient also is still isolative and withdrawn and occasionally, the patient paces up and down the unit. She is compliant with taking her medications with no side effects of Aricept or Namenda. The patient still mumbles to herself in Mohawk language. ASSESSMENT: The patient is still depressed and confused. TREATMENT PLAN: Continue to monitor her behavior and her condition closely. Also, continue adjusting psychotropic medications and continue to work on her ineffective coping and poor coping skills. Also working on her poor impulse control. [facility]# [id number]
[2018-02-05] MEDS: Multivitamin Tab PO SCH (08:49)
[2018-02-05] MEDS: Venelex 60gm Tube TP SCH (08:51)
[2018-02-05] MEDS ORDERED: Escitalopram Oxalate 5 mg Tab PO SCH (09:00)
--- NOTE | 2018-02-06 02:26 | Progress Notes ---
DATE: 02/05/2018 SUBJECTIVE: Chart reviewed and the patient interviewed. Also discussed the patient's condition with the staff and reviewed records and labs. The patient is still slightly confused and she continued to wander around her room. The patient also still has episodes of being suspicious, but she is most of the time seems to be depressed with minimal interaction with others. She also still has episodes of anxiety. On the other hand, the patient is compliant with taking her medication and is denying any side effects of medications. ASSESSMENT: The patient seems to be depressed, but not suicidal. TREATMENT PLAN: We will add Lexapro in a dose of 5 mg every day. Also, continue to monitor her condition and her behavior closely. I called the patient's daughter yesterday to discuss with her further treatment options and further treatment plans and left a message and I will try to call her again today. At the same time, we will continue close observation and will continue to follow up. JOB# [id number]
[2018-02-06] MEDS ORDERED: Escitalopram Oxalate 5 mg Tab PO SCH (09:00)
[2018-02-06] MEDS: Multivitamin Tab PO SCH (09:04)
[2018-02-06] MEDS: Venelex 60gm Tube TP SCH (10:00)
--- NOTE | 2018-02-07 01:27 | Progress Notes ---
DATE: 02/06/2018 SUBJECTIVE: Chart reviewed and the patient interviewed. Also, discussed the patient's condition with the staff and reviewed records and labs. The patient is severely depressed. The patient also is still guarded and withdrawn. The patient also is still feeling hopeless and helpless and wants to be left alone. The patient also at times seems to be confused and interacting minimally with others. Otherwise, the patient is compliant with taking her medications with no side effects of medications. ASSESSMENT: The patient is still depressed. TREATMENT PLAN: We will monitor the patient's behavior and condition closely. Also, we will increase Lexapro to 10 mg every day. Also, we will continue to work on her ineffective coping and her depression. I discussed with the patient's family discharge plans and will try to get the patient to live in [facility] after her discharge from the hospital. At the same time, we will continue working on her severe depression and followup. JOB# [id number]
[2018-02-07] MEDS: Multivitamin Tab PO SCH (09:56)
[2018-02-07] MEDS: Venelex 60gm Tube TP SCH (09:56)
--- NOTE | 2018-02-07 19:57 | Progress Notes ---
DATE: 02/07/2018 SUBJECTIVE: The patient in the hospital, has been depressed. Noted to be guarded, withdrawn, Dr. Veras with ongoing concerns about her hopelessness, helplessness, isolation, appearing depressed, still minimally interactive, confused. She is medication compliant. No side effects. MEDICATIONS: Reviewed. ASSESSMENT: The patient remains depressed, withdrawn, ongoing safety concerns. PLAN: We will continue to monitor. The patient is to be going to [facility]. Continue Lexapro for now. [facility]# [id number]
[2018-02-08] MEDS: Multivitamin Tab PO SCH (09:12)
[2018-02-08] MEDS: Venelex 60gm Tube TP SCH (09:13)
--- NOTE | 2018-02-09 02:06 | Progress Notes ---
DATE: 02/08/2018 SUBJECTIVE: The patient remains withdrawn, mostly in her room. Still remains confused, disoriented, but significantly calmer. Nursing staff noting she slept about 9 hours, still blunted, depressed, needing some redirection and prompting, family very involved. Still with bouts of confusion. The patient is calm at this time. Notes her mood is "okay." Medication were reviewed. ASSESSMENT: The patient seems to be approaching her baseline, calmer, and more cooperative. Family involved. We will continue to monitor. The patient is improving. JOB# [id number]
[2018-02-09] MEDS: Multivitamin Tab PO SCH (09:06)
[2018-02-09] MEDS: Venelex 60gm Tube TP SCH (09:07)
--- NOTE | 2018-02-09 20:54 | General Progress Note ---
Subjective - Review of Systems Service Date: 02/09/18 Subjective: patient doing fine denied headache chest pain or trouble breathing or pain Objective - Results Result Diagrams: 01/22/18 10:00 01/22/18 10:00 Recent Labs: Laboratory Last Values WBC 7.2 Th/cmm (4.8-10.8) 01/22/18 10:00 RBC 4.74 Mil/cmm (3.80-5.20) 01/22/18 10:00 Hgb 15.7 gm/dL (12-16) 01/22/18 10:00 Hct 46.6 % (41.0-60) 01/22/18 10:00 MCV 98.3 fl (81-100) 01/22/18 10:00 MCH 33.2 pg (27.0-31.0) H 01/22/18 10:00 MCHC Differential 33.7 pg (28.0-36.0) 01/22/18 10:00 RDW 12.9 % (11.5-20.0) 01/22/18 10:00 Plt Count 234 Th/cmm (150-400) 01/22/18 10:00 MPV 9.5 fl 01/22/18 10:00 Neutrophils % 59.8 % (40.0-80.0) 01/22/18 10:00 Lymphocytes % 26.7 % (20.0-50.0) 01/22/18 10:00 Monocytes % 10.0 % (2.0-10.0) 01/22/18 10:00 Eosinophils % 2.6 % (0.0-5.0) 01/22/18 10:00 Basophils % 0.9 % (0.0-2.0) 01/22/18 10:00 Sodium 141 mEq/L (136-145) 01/22/18 10:00 Potassium 4.0 mEq/L (3.5-5.1) 01/22/18 10:00 Chloride 106 mEq/L (98-107) 01/22/18 10:00 Carbon Dioxide 28.5 mEq/L (21.0-31.0) 01/22/18 10:00 Anion Gap 10.5 (7.0-16.0) 01/22/18 10:00 BUN 19 mg/dL (7-25) 01/22/18 10:00 Creatinine 1.0 mg/dL (0.6-1.2) 01/22/18 10:00 Est GFR ( Amer) TNP 01/22/18 10:00 Est GFR (Non-Af Amer) TNP 01/22/18 10:00 BUN/Creatinine Ratio 19.0 01/22/18 10:00 Glucose 94 mg/dL (70-105) 01/22/18 10:00 Hemoglobin A1c % 5.4 % (4.0-6.0) 01/22/18 10:00 Calcium 9.5 mg/dL (8.6-10.3) 01/22/18 10:00 Total Bilirubin 0.6 mg/dL (0.3-1.0) 01/22/18 10:00 AST 26 U/L (13-39) 01/22/18 10:00 ALT 19 U/L (7-52) 01/22/18 10:00 Alkaline Phosphatase 88 U/L (34-104) 01/22/18 10:00 Troponin I 0.03 ng/mL (0.01-0.05) 01/22/18 10:00 B-Natriuretic Peptide 91.7 pg/mL (5.0-100.0) 01/22/18 10:00 Total Protein 7.5 gm/dL (6.0-8.3) 01/22/18 10:00 Albumin 3.9 gm/dL (3.7-5.3) 01/22/18 10:00 Globulin 3.6 gm/dL 01/22/18 10:00 Albumin/Globulin Ratio 1.1 (1.0-1.8) 01/22/18 10:00 TSH 1.68 uIU/ml (0.34-5.60) 01/22/18 10:00 Urine Source RANDOM 01/22/18 10:25 Urine Color YELLOW 01/22/18 10:25 Urine Clarity TURBID (CLEAR) H 01/22/18 10:25 Urine pH 7.0 (4.6 - 8.0) 01/22/18 10:25 Ur Specific [place] 1.015 (1.005-1.030) 01/22/18 10:25 Urine Protein NEGATIVE mg/dL (NEGATIVE) 01/22/18 10:25 Urine Glucose (UA) NEGATIVE mg/dL (NEGATIVE) 01/22/18 10:25 Urine Ketones NEGATIVE mg/dL (NEGATIVE) 01/22/18 10:25 Urine Blood TRACE (NEGATIVE) 01/22/18 10:25 Urine Nitrate NEGATIVE (NEGATIVE) 01/22/18 10:25 Urine Bilirubin NEGATIVE (NEGATIVE) 01/22/18 10:25 Urine Urobilinogen 0.2 E.U./dL (0.2 - 1.0) 01/22/18 10:25 Ur Leukocyte Esterase TRACE (NEGATIVE) H 01/22/18 10:25 Urine RBC 2-5 /hpf (0-5) 01/22/18 10:25 Urine WBC 2-5 /hpf (0-5) 01/22/18 10:25 Ur Epithelial Cells OCCASIONAL /lpf (FEW) 01/22/18 10:25 Amorphous Sediment FEW URATES (NONE SEEN) 01/22/18 10:25 Urine Bacteria 1+ /hpf (NONE SEEN) H 01/22/18 10:25 Urine Mucus FEW /lpf (FEW) 01/22/18 10:25 Urine Opiates Screen NEGATIVE (NEGATIVE) 01/22/18 10:25 Urine Methadone Screen NEGATIVE (NEGATIVE) 01/22/18 10:25 Ur Barbiturates Screen NEGATIVE (NEGATIVE) 01/22/18 10:25 Ur Tricyclics Screen NEGATIVE (NEGATIVE) 01/22/18 10:25 Ur Phencyclidine Scrn NEGATIVE (NEGATIVE) 01/22/18 10:25 Amphetamines Screen NEGATIVE (NEGATIVE) 01/22/18 10:25 U Methamphetamines Scrn NEGATIVE (NEGATIVE) 01/22/18 10:25 U Benzodiazepines Scrn NEGATIVE (NEGATIVE) 01/22/18 10:25 U Cocaine Metab Screen NEGATIVE (NEGATIVE) 01/22/18 10:25 U Cannabinoids Screen NEGATIVE (NEGATIVE) 01/22/18 10:25 RPR NONREACTIVE (NONREACTIVE) 01/22/18 10:00 - Physical Exam Vitals and I&O: Vital Signs Temp 97.8 F 02/09/18 20:21 Pulse 59 02/09/18 20:21 Resp 20 02/09/18 20:21 BP 133/57 02/09/18 20:21 Pulse Ox 96 02/09/18 20:21 Intake & Output 02/09/18 02/09/18 02/10/18 06:59 18:59 06:59 Intake Total 360 240 Balance 360 240 Intake: Oral 360 240 Other: # Voids 2 1 # Bowel Movements 0 Active Medications: Current Medications Acetaminophen (Tylenol) 650 mg PO Q4HR PRN PRN Reason: Mild Pain / Temp above 100 Stop: 03/23/18 14:30 Last Admin: 02/07/18 16:57 Dose: 650 mg Al Hydrox/Mg Hydrox/Simethicone (Maalox) 30 ml PO Q4HR PRN PRN Reason: GI DISTRESS Stop: 03/23/18 14:30 [place] Oil/German Balsam/Trypsin (Venelex) 1 appl TP DAILY AKILAH Stop: 03/24/18 11:59 Last Admin: 02/09/18 09:07 Dose: 1 appl Donepezil HCl (Aricept) 10 mg PO HS AIKLAH Stop: 03/24/18 22:59 Last Admin: 02/08/18 21:00 Dose: 10 mg Escitalopram Oxalate (Lexapro) 10 mg PO DAILY AKILAH Stop: 04/07/18 08:59 Last Admin: 02/09/18 09:06 Dose: 10 mg Hydrochlorothiazide (Hctz) 12.5 mg PO DAILY AKILAH Stop: 04/10/18 17:59 Last Admin: 02/09/18 17:07 Dose: 12.5 mg Lorazepam (Ativan) 0.5 mg PO Q4HR PRN; Protocol PRN Reason: Agitation Stop: 02/21/18 14:30 Last Admin: 02/09/18 19:16 Dose: 0.5 mg Magnesium Hydroxide (Milk Of Magnesia) 30 ml PO HS PRN PRN Reason: Constipation Memantine (Namenda) 10 mg PO BID AKILAH Stop: 04/10/18 16:59 Last Admin: 02/09/18 16:41 Dose: 10 mg Metoprolol Tartrate (Lopressor) 25 mg PO DAILY AKILAH Stop: 03/25/18 08:59 Last Admin: 02/09/18 09:06 Dose: 25 mg Multivitamins/Vitamin C (Theragran) 1 tab PO DAILY AKILAH Stop: 03/24/18 08:59 Last Admin: 02/09/18 09:06 Dose: 1 tab Zolpidem Tartrate (Ambien) 5 mg PO HS PRN PRN Reason: Insomnia Stop: 03/23/18 14:30 Last Admin: 02/08/18 21:00 Dose: 5 mg General: Alert Cardiovascular: Regular rate Lungs: Clear to auscultation Abdomen: Soft, no Tender Assessment/Plan - Assessment Assessment: HTN with elevated BP Alzheimers dementia Psych disorder - Plan Plan: HCTZ added Continue beta marion Clonidine prn given Monitor vitals Plan of care discussed with nursing staff Nutritional Asmnt/Malnutr-PDOC - Dietary Evaluation Malnutrition Findings (Please click <Entered> for more info): Nutritional Asmnt/Malnutrition Start: 01/23/18 16: 30 Text: Status: Complete Freq: Protocol: Document 01/23/18 16:30 LCHENG (Rec: 01/23/18 16:39 LCHENG [id number]) Nutritional Asmnt/Malnutrition Patient General Information Nutritional Screening Low Risk Consult Diagnosis psychosis Pertinent Medical Hx/Surgical Hx no medical hx indicated in MD reports. Subjective Information Consult received for left lateral ankle ulcer poss arterial insufficient. Pt was in bathroom at time of visit, Danish speaking noted. Spoke with nurse, Pt consumed 100% of breakfast and lunch. Current Diet Order/ Nutrition Support regular Pertinent Medications theragran Pertinent Labs 01/22 nutrition labs WNL Nutritional Hx/Data Height 1.57 m Height (Calculated Centimeters) 157.5 Current Weight (lbs) 68.946 kg Weight (Calculated Kilograms) 68.9 Weight (Calculated Grams) 39469.0 [place] Body Weight 110 Body Mass Index (BMI) 27.8 Weight Status Overweight GI Symptoms GI Symptoms None Last BM not indicated Difficult in: None Skin Integrity/Comment: Left Lateral Malleolus: possible arterial insufficiency ulcer per wound care note Current %PO Good (75-100%) Estimated Nutritional Goals Calories/Kcals/Kg 25-30 Kcals Calculated 4806-4427 Protein g/k-1.2 Protein Calculated 50-60 Fluid: ml 1250-1500ml (1ml/kcal) Nutritional Problem 1. Problem Problem increased nutrition needs Etiology impaired skin integrity Signs/Symptoms: arterial insufficiency ulcer Malnutrition Alert Is there a minimum of two criteria No selected? Query Text:Check all the applicable criteria. A minimum of two criteria are recommended for diagnosis of either severe or non-severe malnutrition. Malnutrition Related to Morbid Obesity Malnutrition related to morbid obesity No Intervention/Recommendation Comments 1. Continue with current diet as ordered. 2. Monitor PO intake, wt, labs and skin integrity 3. F/U as moderate risk in 3-5 days, 01/26-01/28 Expected Outcomes/Goals Expected Outcomes/Goals 1. PO intake to meet at least 75% of nutritional needs. 2. Wt stability, skin integrity to improve, labs to approach WNL.
--- NOTE | 2018-02-09 22:15 | Progress Notes ---
DATE: 02/09/[address] Veras. Case was discussed with staff of the patient, reviewed records. This is a well-known case to me. I have seen her on 01/30/2018, covering for Dr. Veras. The patient continues to be confused, disoriented, in general calmer, sleeping better, still depressed, needing redirection. She still has episodes of confusion, unable to make safe plan for self-care. The patient is on Aricept 10 mg at bedtime, Lexapro 10 mg a day with no side effects, no sedation, no nausea. She is also on Namenda 5 mg twice a day, I will be increasing the dose to 10 mg twice a day and so far no side effects, no sedation, no nausea and she is still not ready to go to a lesser level of care. We will continue the patient in group therapy, milieu therapy, and adjust the medications as needed. JOB# [id number]
[2018-02-10] MEDS: Venelex 60gm Tube TP SCH (08:55)
[2018-02-10] MEDS: Multivitamin Tab PO SCH (09:01)
--- NOTE | 2018-02-10 20:35 | Progress Notes ---
DATE: 02/10/2018 SUBJECTIVE: Case was discussed with staff of the patient, reviewed records. Also discussed the care yesterday with her guardian. Actually, they wanted to know what the plan and I asked the onsite case manager to call them to discuss discharge plan as I could not tell from the records what has been the plan by Dr. Veras. The patient continues to be confused, continues to be unable to make safe plan for self-care. Continues to be unpredictable, impulsive. I not sure if she will be going to SNF facility or going with family and that will be discussed with the family. No side effects with the medication, no sedation, no nausea and we will continue to work with the patient in group therapy, milieu therapy, adjust medication as needed. JOB# [id number]
[2018-02-11] MEDS: Multivitamin Tab PO SCH (09:48)
[2018-02-11] MEDS: Venelex 60gm Tube TP SCH (13:00)
[2018-02-12] MEDS: Multivitamin Tab PO SCH (09:59)
[2018-02-12] MEDS: Venelex 60gm Tube TP SCH (13:39)
--- NOTE | 2018-02-12 20:42 | Progress Notes ---
DATE: 02/11/2018 SUBJECTIVE: Chart reviewed and the patient interviewed. Also discussed the patient's condition with the staff and reviewed records and labs. The patient continued to be in a depressed mood. She also is still flat affect and wants to be left alone. The patient also is still feeling hopeless. On the other hand, the patient denies any intention to harm herself and she continued to comply with taking Lexapro and Aricept. ASSESSMENT: The patient is still depressed. TREATMENT PLAN: We will continue to monitor her behavior and her condition closely. Also, continue to work on her ineffective coping. Also discussed with heel caser and with the staff, discharge plans and hopefully if the patient continued to improve, will discharge her to [facility]. JOB# [id number]
--- NOTE | 2018-02-13 01:23 | Discharge Summary ---
DATE OF DISCHARGE: 02/12/2018 AGE: 72. SEX: Female. PHYSICIAN: Dr. Veras. FINAL DIAGNOSIS: PRIMARY DIAGNOSIS: Unspecified psychosis. SECONDARY DIAGNOSIS: Dementia, moderate to severe, with psychotic features. REASON FOR HOSPITALIZATION: The patient was admitted to the hospital because of confusion and the patient was placed on a hold for grave disability after the patient was walking in the middle of the street regardless of her safety. HOSPITAL COURSE: The patient continued to be confused and continued to be in a depressed mood. The patient also was anxious and she needed lots of redirections. She also wanted to be left alone. The patient started on Namenda and the dose adjusted to 10 mg twice a day. She also continued to take Aricept 10 mg at bedtime as well as Lexapro 10 mg every day. The patient was less agitated and less depressed. The patient was accepted in [facility]. Physical exam of the patient showed no major medical problems and the patient had no major medical problems while in the hospital. AFTER DISCHARGE PLANS: The patient discharged from the hospital to [facility] with plans for outpatient treatment and follow up there. EXPECTED OUTCOME AFTER DISCHARGE: Fair if the patient continues to take his psychotropic medications and follow up with discharge plans. [facility]# [id number]
== END 2018-02-12 19:05 | DRG 885 ==
LOC: ER 09:02 → GERO2 12:02 → GERO 01-24 08:30
PROVIDERS: ADMIT Psychiatry & Neurology Psychiatry; ATTEND Psychiatry & Neurology Psychiatry
DX: F29 Unspecified psychosis not due to a substance or known physiological condition (principal); F02.81 Dementia in other diseases classified elsewhere, unspecified severity, with behavioral disturbance; N39.0 Urinary tract infection, site not specified; I10 Essential (primary) hypertension; G47.00 Insomnia, unspecified; G30.9 Alzheimer's disease, unspecified; S81.802A Unspecified open wound, left lower leg, initial encounter; Y93.89 Activity, other specified; Y92.89 Other specified places as the place of occurrence of the external cause; Y99.8 Other external cause status; Z79.899 Other long term (current) drug therapy
CPT/HCPCS: 36415-UA; 70450-TC; 71045-TC; 80053-TC; 80307; 81001-TC; 83036-90; 83880-TC; 84443-TC; 84484-TC; 85025-TC; 86592-TC; 87070-90; 87075-90; 87205-90; 90899; 93005; 97530; G0410; J0696; X3904; Z7610

== ENCOUNTER 2018-06-17 14:12 | Inpatient (IN) | payer MEDICARE, MEDICAID ==
--- NOTE | 2018-06-17 14:54 | ED Physician Chart ---
ED Chief Complaint/HPI - Patient Information Date Seen:: 06/17/18 Time Seen:: 14:48 Chief Complaint:: dizziness History of Present Illness:: 73 yr old female [place] with dizziness with hypertension hx some headache denies cp abd pain nvd and denied fall has hx of lt ankle fx Allergies:: Allergies Allergy/AdvReac Type Severity Reaction Status Date / Time No Known Allergies Allergy Verified 01/22/18 11:56 Vitals:: Vital Signs - 8 hr 06/17/18 14:31 Temp 98.7 F HR 59 RR 16 BP 147/75 O2 Sat % 94 ED Review of Systems - Review of Systems General/Constitutional: No fever, No chills, No weight loss, No weakness, No diaphoresis, No edema, No loss of appetite Skin: No skin lesions, No rash, No bruising Head: Headache, No headache, No light-headedness Eyes: No loss of vision, No pain, No diplopia ENT: No earache, No nasal drainage, No sore throat, No tinnitus Neck: No neck pain, No swelling, No thyromegaly, No stiffness, No mass noted Cardio Vascular: No chest pain, No palpitations, No PND, No orthopnea, No edema Pulmonary: No SOB, No cough, No sputum, No wheezing GI: No nausea, No vomiting, No diarrhea, No pain, No melena, No hematochezia, No constipation, No hematemesis G/U: No dysuria, No frequency, No hematuria Musculoskeletal: No bone or joint pain, No back pain, No muscle pain Endocrine: No polyuria, No polydipsia Psychiatric: No prior psych history, No depression, No anxiety, No suicidal ideation Hematopoietic: No bruising, No lymphadenopathy Allergic/Immuno: No urticaria, No angioedema Neurological: No syncope, No focal symptoms, No weakness, No paresthesia, No headache, No seizure, No dizziness, No confusion, No vertigo ED Past Medical History - Past Medical History Past Medical History: HTN, Dementia Family Medical History - Family Member Mother History Unknown: Yes Ethnicity: Unknown Living Status: ED Physical Exam - Physical Examination Other Skin comments:: lt ankle old fx deformity and adjacent skin changes and smal lat malleolus ulcer small open with red base size of a landon ED Assessment - Assessment General Assessment: dizziness hypertension ED Septic Shock - . Is Septic Shock (SBP<90, OR Lactate>4 mmol\L) present?: No - <6hrs of presentation: Vital Signs: Vital Signs - 8 hr 06/17/ 14:31 Temp 98.7 F HR 59 RR 16 BP 147/75 O2 Sat % 94 ED Reassessment (Disposition) - Reassessment Reassessment Condition:: Improved - Diagnosis Diagnosis:: dizziness hypertension - Patient Disposition Discharge/Transfer:: Acute Care w/in this hosp Admitted to:: Med/Surg Condition at Disposition:: Stable
--- NOTE | 2018-06-17 15:02 | Diagnostic Imaging Report ---
CHEST X-RAY: AP view INDICATION: Shortness of breath COMPARISON: 01/22/2018 FINDINGS: Chronic interstitial lung changes are seen with no focal consolidation or effusions. Mild cardiomegaly is noted with atherosclerosis. Degenerative changes of the spine are noted. IMPRESSION: Chronic interstitial lung changes with no focal consolidation identified. Mild cardiomegaly with atherosclerosis.
[2018-06-17 15:18] LABS: % BASOPHILS 0.9 % (0.0-2.0); % EOSINOPHILS 2.9 % (0.0-5.0); % LYMPHOCYTES 25.4 % (20.0-50.0); % MONOCYTES 8.2 % (2.0-10.0); % NEUTROPHILS 62.6 % (40.0-80.0); BASOPHILE ABSOLUTE 0.1 Th/cumm (0-0.2); EOSINOPHILE ABSOLUTE 0.2 Th/cmm (0.1-0.4); HEMATOCRIT 44.5 % (41.0-60); HEMOGLOBIN 15.2 gm/dL (12-16); LYMPHOCYTE ABSOLUTE 1.9 Th/cmm (1.5-3.0); MEAN CELL VOLUME 98.1 fl (81-100); MEAN CORPUSCULAR HEMOGLOBIN 33.4 pg (27.0-31.0); MEAN CORPUSCULAR HGB CONC 34.1 pg (28.0-36.0); MEAN PLATELET VOLUME 9.6 fl; MONOCYTE ABSOLUTE 0.6 Th/cmm (0.3-1.0); NEUTROPHILE ABSOLUTE 4.5 Th/cmm (1.8-8.0); PLATELET COUNT 204 Th/cmm (150-400); RED BLOOD COUNT 4.53 Mil/cmm (3.80-5.20); RED CELL DISTRIBUTION WIDTH 12.7 % (11.5-20.0); WHITE BLOOD COUNT 7.3 Th/cmm (4.8-10.8)
[2018-06-17 15:33] LABS: ALB/GLOB RATIO 1.1 (1.0-1.8); ALBUMIN 3.8 gm/dL (3.7-5.3); ALKALINE PHOSPHATASE 95 U/L (34-104); ANION GAP 12.4 (7.0-16.0); BILIRUBIN,TOTAL 0.4 mg/dL (0.3-1.0); BUN - UREA NITROGEN 16 mg/dL (7-25); CARBON DIOXIDE 26.7 mEq/L (21.0-31.0); CHLORIDE 101 mEq/L (98-107); CREATININE - SERUM 0.7 mg/dL (0.6-1.2); GLUCOSE 154 mg/dL (70-105); POTASSIUM SERUM 3.1 mEq/L (3.5-5.1); SGOT 20 U/L (13-39); SGPT/ALT 20 U/L (7-52); SODIUM SERUM 137 mEq/L (136-145); TOTAL PROTEIN,SERUM 7.3 gm/dL (6.0-8.3)
[2018-06-17] MEDS ORDERED: Potassium Chloride 20 mEq ER Tab PO ONE ×2 (15:46→15:51)
[2018-06-17 18:23] VITALS: BP 162/74
[2018-06-17] MEDS ORDERED: Magnesium Hydroxide (MOM) 30 mL UDC PO PRN (18:33)
[2018-06-17] MEDS ORDERED: Maalox 30 mL Cup PO PRN (18:33)
[2018-06-17] MEDS ORDERED: Ipratropium Neb 0.5 mg/2.5 mL UD HHN PRN (18:34)
[2018-06-17] MEDS ORDERED: Albuterol Nebulizer 2.5mg/3mL HHN PRN (18:34)
[2018-06-17] MEDS ORDERED: guaiFENesin 200 MG/10 ML UDC PO PRN (18:34)
[2018-06-17] MEDS: D5-0.45NS 1,000 ML IV SCH (19:45)
[2018-06-18 05:47] LABS: ANION GAP 10.8 (7.0-16.0); BUN - UREA NITROGEN 15 mg/dL (7-25); CALCIUM SERUM 8.5 mg/dL (8.6-10.3); CARBON DIOXIDE 25.8 mEq/L (21.0-31.0); CHLORIDE 106 mEq/L (98-107); CREATININE - SERUM 0.6 mg/dL (0.6-1.2); GLUCOSE 131 mg/dL (70-105); MAGNESIUM 1.9 mg/dL (1.9-2.7); POTASSIUM SERUM 3.6 mEq/L (3.5-5.1); SODIUM SERUM 139 mEq/L (136-145)
[2018-06-18] MEDS: Multivitamin Tab PO SCH (08:35)
[2018-06-18] MEDS: D5-0.45NS 1,000 ML IV SCH ×2 (08:47→23:12)
--- NOTE | 2018-06-18 12:09 | Diagnostic Imaging Report ---
Carotid ultrasound HISTORY: Syncope COMPARISON: None Technique: Longitudinal and transverse sonographic sector images of the carotid arteries were obtained with doppler analysis. FINDINGS: Exam of the right side demonstrates mild to moderate atherosclerotic vascular disease. There is mild increased velocity right proximal common carotid artery is 131 cm/second. Exam of the left side demonstrates mild to moderate atherosclerotic vascular disease. No evidence of elevated velocities. The velocity ratios are within normal limits. Antegrade vertebral artery flow is noted bilaterally. IMPRESSION: Mild to moderate atherosclerotic vascular disease. No evidence of hemodynamically significant stenosis.
--- NOTE | 2018-06-18 14:06 | Internal Medicine Prog Note ---
Internal Medicine Subjective - Subjective Service Date: 06/18/18 ([id number] [facility]) Internal Medicine Objective - Results Result Diagrams: 06/17/18 15:03 06/18/18 05:20 Recent Labs: Laboratory Last Values WBC 7.3 Th/cmm (4.8-10.8) 06/17/18 15:03 RBC 4.53 Mil/cmm (3.80-5.20) 06/17/18 15:03 Hgb 15.2 gm/dL (12-16) 06/17/18 15:03 Hct 44.5 % (41.0-60) 06/17/18 15:03 MCV 98.1 fl (81-100) 06/17/18 15:03 MCH 33.4 pg (27.0-31.0) H 06/17/18 15:03 MCHC Differential 34.1 pg (28.0-36.0) 06/17/18 15:03 RDW 12.7 % (11.5-20.0) 06/17/18 15:03 Plt Count 204 Th/cmm (150-400) 06/17/18 15:03 MPV 9.6 fl 06/17/18 15:03 Neutrophils % 62.6 % (40.0-80.0) 06/17/18 15:03 Lymphocytes % 25.4 % (20.0-50.0) 06/17/18 15:03 Monocytes % 8.2 % (2.0-10.0) 06/17/18 15:03 Eosinophils % 2.9 % (0.0-5.0) 06/17/18 15:03 Basophils % 0.9 % (0.0-2.0) 06/17/18 15:03 Sodium 139 mEq/L (136-145) 06/18/18 05:20 Potassium 3.6 mEq/L (3.5-5.1) 06/18/18 05:20 Chloride 106 mEq/L (98-107) 06/18/18 05:20 Carbon Dioxide 25.8 mEq/L (21.0-31.0) 06/18/18 05:20 Anion Gap 10.8 (7.0-16.0) 06/18/18 05:20 BUN 15 mg/dL (7-25) 06/18/18 05:20 Creatinine 0.6 mg/dL (0.6-1.2) 06/18/18 05:20 Est GFR ( Amer) TNP 06/18/18 05:20 Est GFR (Non-Af Amer) TNP 06/18/18 05:20 BUN/Creatinine Ratio 25.0 06/18/18 05:20 Glucose 131 mg/dL (70-105) H 06/18/18 05:20 POC Glucose 93 MG/DL (70 - 105) 06/17/18 17:49 Whole Bld Lactic Acid 1.30 mmol/L (0.60-1.99) 06/17/18 15:03 Calcium 8.5 mg/dL (8.6-10.3) L 06/18/18 05:20 Magnesium 1.9 mg/dL (1.9-2.7) 06/18/18 05:20 Total Bilirubin 0.4 mg/dL (0.3-1.0) 06/17/18 15:03 AST 20 U/L (13-39) 06/17/18 15:03 ALT 20 U/L (7-52) 06/17/18 15:03 Alkaline Phosphatase 95 U/L (34-104) 06/17/18 15:03 Ammonia 64 umol/L (16-53) H 06/18/18 05:20 Troponin I 0.01 ng/mL (0.01-0.05) 06/17/18 15:03 B-Natriuretic Peptide 53.0 pg/mL (5.0-100.0) 06/18/18 05:20 Total Protein 7.3 gm/dL (6.0-8.3) 06/17/18 15:03 Albumin 3.8 gm/dL (3.7-5.3) 06/17/18 15:03 Globulin 3.5 gm/dL 06/17/18 15:03 Albumin/Globulin Ratio 1.1 (1.0-1.8) 06/17/18 15:03 TSH 1.31 uIU/ml (0.34-5.60) 06/18/18 05:20 - Physical Exam Vitals and I&O: Vital Signs Temp 97.1 F 06/18/18 11:38 Pulse 53 06/18/18 11:38 Resp 18 10/18/18 11:38 BP 152/61 06/18/18 11:38 Pulse Ox 96 06/18/18 11:38 Intake & Output 06/17/18 06/18/18 06/18/18 18:59 06:59 18:59 Intake Total 366 12 0533 Balance 925 06 5768 Weight (lbs) 173 lb 9.6 oz 172 lb 9 oz Intake: Intake, IV Amount 1000 D5-0.45NS 1,000 ml @ 80 1000 mls/hr IV .[id number] [facility] Rx #:[id number] Oral 400 50 Other: # Voids 1 2 # Bowel Movements 0 0 Weight Source Bedscale Bedscale Active Medications: Current Medications Acetaminophen (Tylenol) 650 mg PO Q4HR PRN PRN Reason: Mild Pain 1-3 / Temp above 100 Stop: 08/16/18 18:32 Al Hydrox/Mg Hydrox/Simethicone (Maalox) 30 ml PO Q4HR PRN PRN Reason: GI DISTRESS Stop: 08/16/18 18:32 Albuterol Sulfate (Albuterol 2.5mg/3ml Neb Ud) 2.5 mg HHN Q2HRT PRN PRN Reason: Shortness of Breath or Wheeze Stop: 08/16/18 18:33 Aspirin (Ecotrin) 81 mg PO DAILY [facility] Stop: 08/17/18 08:59 Last Admin: 06/18/18 08:36 Dose: 81 mg Donepezil HCl (Aricept) 10 mg PO HS [facility] Stop: 08/16/18 20:59 Last Admin: 06/17/18 20:43 Dose: 10 mg Escitalopram Oxalate (Lexapro) 10 mg PO DAILY [facility]; Protocol Stop: 08/17/18 08:59 Last Admin: 06/18/18 08:35 Dose: 10 mg Guaifenesin (Robitussin) 200 mg PO Q4HR PRN PRN Reason: Cough or Congestion Stop: 08/16/18 18:33 Hydrochlorothiazide (Hctz) 12.5 mg PO DAILY [facility] Stop: 08/17/18 08:59 Last Admin: 06/18/18 09:32 Dose: 12.5 mg Dextrose/Sodium Chloride (D5-0.45ns) 1,000 mls @ 80 mls/hr IV .[id number] [facility] Stop: 08/16/18 19:14 Last Admin: 06/18/18 08:47 Dose: 80 mls/hr Ipratropium [place] (Atrovent Neb 0.5mg/2.5ml) 0.5 mg HHN Q2HRT PRN PRN Reason: Shortness of Breath or Wheeze Stop: 08/16/18 18:33 Magnesium Hydroxide (Milk Of Magnesia) 30 ml PO HS PRN PRN Reason: Constipation Stop: 08/16/18 18:32 Memantine (Namenda) 10 mg PO BID [facility] Stop: 08/17/18 08:59 Last Admin: 06/18/18 08:35 Dose: 10 mg Metoprolol Tartrate (Lopressor) 25 mg PO DAILY AKILAH Stop: 08/17/18 08:59 Last Admin: 06/18/18 08:36 Dose: 25 mg Mirtazapine (Remeron) 7.5 mg PO HS AKILAH; Protocol Stop: 08/17/18 20:59 Multivitamins/Vitamin C (Theragran) 1 tab PO DAILY AKILAH Stop: 08/17/18 08:59 Last Admin: 06/18/18 08:35 Dose: 1 tab Nitroglycerin (Nitrostat) 0.4 mg SL Q5MIN PRN PRN Reason: Chest Pain Stop: 08/16/18 18:33 Ondansetron HCl (Zofran) 4 mg IV Q8H PRN PRN Reason: Nausea / Vomiting Stop: 08/16/18 18:33
--- NOTE | 2018-06-18 14:43 | Diagnostic Imaging Report ---
Head CT without intravenous contrast Indication: Dizziness Comparison: Head CT on 01/22/2018 Technique: Axial images were obtained from the vertex to the skull base without IV contrast. Coronal reconstructions were made. Total DLP: 542, CTDI31.3 FINDINGS: Images of the brain obtained without contrast demonstrate no evidence of an acute hemorrhage. 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 Moderate white matter disease is noted. Mild atrophy is noted. The ventricles and basal cisterns are patent. No mass effect or midline shift. Shrunken calcified left globe is seen with what appear to be postsurgical changes as seen on prior exam. No evidence of a skull fracture or focal soft tissue swelling. The visualized paranasal sinuses are clear. IMPRESSION: No evidence of an acute intracranial hemorrhage. Moderate supratentorial white matter disease which is nonspecific and may be due to chronic microvessel ischemia. 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
--- NOTE | 2018-06-18 16:49 | History & Physical ---
ADMIT DATE: 06/17/2018 CHIEF COMPLAINT: Dizziness, headache, and generalized weakness. HISTORY OF PRESENT ILLNESS: This is a 73-year-old female who is a prison resident, admitted to the telemetry unit due to complaints of dizziness and headache as well as generalized weakness. For further management, the patient is now admitted here to the telemetry unit. PAST MEDICAL HISTORY: Hypertension, dementia. PAST SURGICAL HISTORY: Unknown. ALLERGIES: No known allergies. SOCIAL HISTORY: The patient is a prison regimen, requiring 24-hour nursing care. REVIEW OF SYSTEMS: GENERAL: Denies any fevers and chills, but complains of weakness. CARDIOVASCULAR: Denies chest pain. RESPIRATORY: Denies shortness of breath. GASTROINTESTINAL: Denies nausea, vomiting, abdominal pain. GENITOURINARY: Denies increased frequency or dysuria. NEUROLOGIC: No headaches, seizures or syncope. All systems are reviewed and negative. PHYSICAL EXAMINATION: GENERAL: Elderly female, awake, alert, in no apparent distress. VITAL SIGNS: Temperature 97.1, heart rate 83, blood pressure 152/61, respirations 18, O2 sat 96%. HEENT: Head: Normocephalic, atraumatic. NECK: Supple. No mass. LUNGS: Clear bilaterally. HEART: Regular rate and rhythm. ABDOMEN: Soft, nontender. EXTREMITIES: No trace of edema noted. LABORATORY DATA: WBC 7.3, H and H 15.2 and 44.5, platelet of 204. Sodium 139, potassium 3.6, chloride 106, BUN 15, creatinine 0.6. Ammonia of 64. DIAGNOSTICS: The patient had a carotid ultrasound done, impression is mild to moderate atherosclerotic vascular disease, no evidence of hemodynamically significant stenosis. Chest x-ray was also obtained, impression is chronic interstitial lung changes with no focal consolidation identified, mild cardiomegaly with atherosclerosis. ASSESSMENT: Possible syncope, fall, generalized weakness, hypertension, dementia, hypokalemia. PLAN: We will get 2D echocardiogram, PT evaluation. Fall precautions will be initiated. Keep patient on IV fluids for hydration. We will probably get a CT of the head. We will continue to monitor this patient. [facility]# [id number]
[2018-06-18] MEDS: Venelex 60gm Tube TP SCH (18:54)
--- NOTE | 2018-06-19 00:44 | Consultation ---
DATE OF CONSULTATION: 06/18/2018 IDENTIFYING INFORMATION: The patient is a 73-year-old female. REASON FOR CONSULTATION: ____ because of depression. HISTORY OF PRESENT ILLNESS: The patient was admitted because of syncope attack and septic shock with a history of dizziness, hypertension to the medical floor. When I talked to the patient and talked through a body technician, the patient reported she admits to feeling depressed and that she has a history of prior depression, but she denies any intent to harm herself or anybody. She reports she is unable to sleep. Appetite is okay. She denies any auditory or visual hallucinations. Denies any intent to harm herself or anybody. She was unable to tell me the date, where she is, why she is here. She is diagnosed also with dementia. PAST PSYCHIATRIC HISTORY: The patient reports she has prior treatment for depression once. She is not sure what medications she has took; however, currently she is on Lexapro 10 mg daily as well as Namenda 10 mg twice a day and Aricept 10 mg at bedtime. The patient denies prior suicide attempt. MEDICAL HISTORY: Dizziness, hypertension. The patient also has asthma. MEDICATIONS: She is on albuterol inhaler, aspirin, clonidine, guaifenesin as needed, hydrochlorothiazide, metoprolol, multivitamin, and nitroglycerin. FAMILY AND SOCIAL HISTORY: The patient reports she is . She has 2 children. She has 5th grade education in [place]. 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 She is unable to tell me if there is any family psychotic disorder. She was not sure. She denies having any history of abuse or legal problem. MENTAL STATUS EXAMINATION: The patient is appropriately dressed, not well groomed. She was in bed. We spoke through a body technician. She was alert, able to tell me her date of , but she is unable to tell me the date, where she is, why she is here. Her long-term memory is good from age, date of . Recent memory is poor. She is not sure why she is here, what led to her admission. She denies ____. Denies paranoia. Denies any intent to harm herself or anybody. Admits to feeling depressed with poor sleep, poor energy, poor motivation. Appetite varies. Her insight to the illness is fair. She knows she has depression and judgment is poor, because of her dementia. IMPRESSION: AXIS I: Major depression, recurrent with no psychosis. Her depression is moderate. 1. Dementia. DIAGNOSIS: Dizziness, hypertension, coronary artery disease. PLAN: We will be recommend to add Remeron. Discussed side effects. The patient needs follow up with the psychiatrist upon discharge. Follow up with the patient here. Thank you very much for allowing me to participate in the care of this most interesting lady. JOB# [id number]
[2018-06-19 06:04] LABS: % BASOPHILS 0.5 % (0.0-2.0); % EOSINOPHILS 5.2 % (0.0-5.0); % LYMPHOCYTES 30.8 % (20.0-50.0); % MONOCYTES 10.6 % (2.0-10.0); % NEUTROPHILS 52.9 % (40.0-80.0); EOSINOPHILE ABSOLUTE 0.3 Th/cmm (0.1-0.4); HEMATOCRIT 44.7 % (41.0-60); HEMOGLOBIN 15.2 gm/dL (12-16); LYMPHOCYTE ABSOLUTE 1.8 Th/cmm (1.5-3.0); MEAN CORPUSCULAR HEMOGLOBIN 33.2 pg (27.0-31.0); MEAN CORPUSCULAR HGB CONC 33.9 pg (28.0-36.0); MEAN PLATELET VOLUME 10.3 fl; MONOCYTE ABSOLUTE 0.6 Th/cmm (0.3-1.0); PLATELET COUNT 179 Th/cmm (150-400); RED BLOOD COUNT 4.56 Mil/cmm (3.80-5.20); RED CELL DISTRIBUTION WIDTH 12.7 % (11.5-20.0); WHITE BLOOD COUNT 5.7 Th/cmm (4.8-10.8)
[2018-06-19 06:25] LABS: ANION GAP 11.5 (7.0-16.0); BUN - UREA NITROGEN 13 mg/dL (7-25); CALCIUM SERUM 8.6 mg/dL (8.6-10.3); CARBON DIOXIDE 26.9 mEq/L (21.0-31.0); CHLORIDE 106 mEq/L (98-107); CREATININE - SERUM 0.7 mg/dL (0.6-1.2); GLUCOSE 127 mg/dL (70-105); POTASSIUM SERUM 3.4 mEq/L (3.5-5.1); SODIUM SERUM 141 mEq/L (136-145)
[2018-06-19] MEDS: Multivitamin Tab PO SCH (08:14)
[2018-06-19] MEDS: Venelex 60gm Tube TP SCH (08:15)
[2018-06-19 08:37] LABS: URINE SOURCE CLEAN C
[2018-06-19 08:40] LABS: URINE BILIRUBIN NEGATIVE (NEGATIVE); URINE BLOOD MODERATE (NEGATIVE); URINE GLUCOSE (UA) NEGATIVE (NEGATIVE); URINE KETONE NEGATIVE (NEGATIVE); URINE LEUKOCYTE ESTERASE MODERATE (NEGATIVE); URINE MICROSCOPIC INDICATED? YES; URINE NITRATE POSITIVE (NEGATIVE); URINE PROTEIN NEGATIVE (NEGATIVE)
[2018-06-19 09:06] LABS: URINE CLARITY CLOUDY (CLEAR); URINE COLOR YELLOW
[2018-06-19 09:09] LABS: URINE WBC 25-50 /hpf (0-5)
[2018-06-19 09:11] LABS: URINE BACTERIA 2+ /hpf (NONE SEEN); URINE EPITHELIAL CELLS OCCASIONAL /lpf (FEW)
[2018-06-19 11:10] LABS: FOLIC ACID 14.9 ng/mL (>3.0)
--- NOTE | 2018-06-19 12:33 | Internal Medicine Prog Note ---
Internal Medicine Subjective - Subjective Service Date: 06/19/18 Patient seen and examined:: with staff Patient is:: awake, verbal Per staff patient has:: tolerating meds Internal Medicine Objective - Results Result Diagrams: 06/19/18 05:10 06/19/18 05:10 Recent Labs: Laboratory Last Values WBC 5.7 Th/cmm (4.8-10.8) 06/19/18 05:10 RBC 4.56 Mil/cmm (3.80-5.20) 06/19/18 05:10 Hgb 15.2 gm/dL (12-16) 06/19/18 05:10 Hct 44.7 % (41.0-60) 06/19/18 05:10 MCV 98.0 fl (81-100) 06/19/18 05:10 MCH 33.2 pg (27.0-31.0) H 06/19/18 05:10 MCHC Differential 33.9 pg (28.0-36.0) 06/19/18 05:10 RDW 12.7 % (11.5-20.0) 06/19/18 05:10 Plt Count 179 Th/cmm (150-400) 06/19/18 05:10 MPV 10.3 fl 06/19/18 05:10 Neutrophils % 52.9 % (40.0-80.0) 06/19/18 05:10 Lymphocytes % 30.8 % (20.0-50.0) 06/19/18 05:10 Monocytes % 10.6 % (2.0-10.0) H 06/19/18 05:10 Eosinophils % 5.2 % (0.0-5.0) H 06/19/18 05:10 Basophils % 0.5 % (0.0-2.0) 06/19/18 05:10 Sodium 141 mEq/L (136-145) 06/19/18 05:10 Potassium 3.4 mEq/L (3.5-5.1) L 06/19/18 05:10 Chloride 106 mEq/L (98-107) 06/19/18 05:10 Carbon Dioxide 26.9 mEq/L (21.0-31.0) 06/19/18 05:10 Anion Gap 11.5 (7.0-16.0) 06/19/18 05:10 BUN 13 mg/dL (7-25) 06/19/18 05:10 Creatinine 0.7 mg/dL (0.6-1.2) 06/19/18 05:10 Est GFR ( Amer) TNP 06/19/18 05:10 Est GFR (Non-Af Amer) TNP 06/19/18 05:10 BUN/Creatinine Ratio 18.6 06/19/18 05:10 Glucose 127 mg/dL (70-105) H 06/19/18 05:10 POC Glucose 93 MG/DL (70 - 105) 06/17/18 17:49 Whole Bld Lactic Acid 1.30 mmol/L (0.60-1.99) 06/17/18 15:03 Calcium 8.6 mg/dL (8.6-10.3) 06/19/18 05:10 Magnesium 1.9 mg/dL (1.9-2.7) 06/18/18 05:20 Total Bilirubin 0.4 mg/dL (0.3-1.0) 06/17/18 15:03 AST 20 U/L (13-39) 06/17/18 15:03 ALT 20 U/L (7-52) 06/17/18 15:03 Alkaline Phosphatase 95 U/L (34-104) 06/17/18 15:03 Ammonia 64 umol/L (16-53) H 06/18/18 05:20 Troponin I 0.01 ng/mL (0.01-0.05) 06/17/18 15:03 B-Natriuretic Peptide 53.0 pg/mL (5.0-100.0) 06/18/18 05:20 Total Protein 7.3 gm/dL (6.0-8.3) 06/17/18 15:03 Albumin 3.8 gm/dL (3.7-5.3) 06/17/18 15:03 Globulin 3.5 gm/dL 06/17/18 15:03 Albumin/Globulin Ratio 1.1 (1.0-1.8) 06/17/18 15:03 Vitamin B12 794 pg/mL (232-1245) 06/18/18 05:20 Folic Acid 14.9 ng/mL (>3.0) 06/18/18 05:20 TSH 1.31 uIU/ml (0.34-5.60) 06/18/18 05:20 Urine Source CLEAN C 06/19/18 08:32 Urine Color YELLOW 06/19/18 08:32 Urine Clarity CLOUDY (CLEAR) H 06/19/18 08:32 Urine pH 7.0 (4.6 - 8.0) 06/19/18 08:32 Ur Specific [place] 1.015 (1.005-1.030) 06/19/18 08:32 Urine Protein NEGATIVE mg/dL (NEGATIVE) 06/19/18 08:32 Urine Glucose (UA) NEGATIVE mg/dL (NEGATIVE) 06/19/18 08:32 Urine Ketones NEGATIVE mg/dL (NEGATIVE) 06/19/18 08:32 Urine Blood MODERATE (NEGATIVE) H 06/19/18 08:32 Urine Nitrate POSITIVE (NEGATIVE) H 06/19/18 08:32 Urine Bilirubin NEGATIVE (NEGATIVE) 06/19/18 08:32 Urine Urobilinogen 1.0 E.U./dL (0.2 - 1.0) 06/19/18 08:32 Ur Leukocyte Esterase MODERATE (NEGATIVE) H 06/19/18 08:32 Urine RBC 5-10 /hpf (0-5) H 06/19/18 08:32 Urine WBC 25-50 /hpf (0-5) H 06/19/18 08:32 Ur Epithelial Cells OCCASIONAL /lpf (FEW) 06/19/18 08:32 Urine Bacteria 2+ /hpf (NONE SEEN) H 06/19/18 08:32 - Physical Exam Vitals and I&O: Vital Signs Temp 97 F 06/19/18 08:00 Pulse 68 06/19/18 08:14 Resp 19 06/19/18 08:00 BP 137/73 06/19/18 09:32 Pulse Ox 97 06/19/18 08:00 Intake & Output 06/18/18 06/19/18 06/19/18 18:59 06:59 18:59 Intake Total 1000 1050 Balance 1000 1050 Weight (lbs) 176 lb Intake: Intake, IV Amount 1000 1000 D5-0.45NS 1,000 ml @ 80 1000 1000 mls/hr IV .[id number] [facility] Rx #:[id number] Oral 50 Other: # Voids 3 # Bowel Movements 0 Weight Source Bedscale Active Medications: Current Medications Acetaminophen (Tylenol) 650 mg PO Q4HR PRN PRN Reason: Mild Pain 1-3 / Temp above 100 Stop: 08/16/18 18:32 Last Admin: 06/19/18 10:00 Dose: 650 mg Al Hydrox/Mg Hydrox/Simethicone (Maalox) 30 ml PO Q4HR PRN PRN Reason: GI DISTRESS Stop: 08/16/18 18:32 Albuterol Sulfate (Albuterol 2.5mg/3ml Neb Ud) 2.5 mg HHN Q2HRT PRN PRN Reason: Shortness of Breath or Wheeze Stop: 08/16/18 18:33 Aspirin (Ecotrin) 81 mg PO DAILY [facility]IL[facility] Stop: 08/17/18 08:59 Last Admin: 06/19/18 08:15 Dose: 81 mg [place] Oil/[place] Balsam/Trypsin (Venelex) 1 appl TP DAILY AKIL[facility] Stop: 08/17/18 14:59 Last Admin: 06/19/18 08:15 Dose: 1 appl Donepezil HCl (Aricept) 10 mg PO HS AKILAH Stop: 08/16/18 20:59 Last Admin: 06/18/18 21:44 Dose: 10 mg Escitalopram Oxalate (Lexapro) 10 mg PO DAILY AKILAH; Protocol Stop: 08/17/18 08:59 Last Admin: 06/19/18 08:14 Dose: 10 mg Guaifenesin (Robitussin) 200 mg PO Q4HR PRN PRN Reason: Cough or Congestion Stop: 08/16/18 18:33 Hydrochlorothiazide (Hctz) 12.5 mg PO DAILY AKILAH Stop: 08/17/18 08:59 Last Admin: 06/19/18 08:14 Dose: 12.5 mg Dextrose/Sodium Chloride (D5-0.45ns) 1,000 mls @ 80 mls/hr IV .[id number] AKILAH Stop: 08/16/18 19:14 Last Admin: 06/18/18 23:12 Dose: 80 mls/hr Ipratropium [place] (Atrovent Neb 0.5mg/2.5ml) 0.5 mg HHN Q2HRT PRN PRN Reason: Shortness of Breath or Wheeze Stop: 08/16/18 18:33 Magnesium Hydroxide (Milk Of Magnesia) 30 ml PO HS PRN PRN Reason: Constipation Stop: 12/16/18 18:32 Memantine (Namenda) 10 mg PO BID [facility] Stop: 08/17/18 08:59 Last Admin: 06/19/18 08:14 Dose: 10 mg Metoprolol Tartrate (Lopressor) 25 mg PO DAILY [facility] Stop: 08/17/18 08:59 Last Admin: 06/19/18 08:14 Dose: 25 mg Mirtazapine (Remeron) 7.5 mg PO HS [facility]; Protocol Stop: 08/17/18 20:59 Last Admin: 06/18/18 21:43 Dose: 7.5 mg Multivitamins/Vitamin C (Theragran) 1 tab PO DAILY [facility] Stop: 08/17/18 08:59 Last Admin: 06/19/18 08:14 Dose: 1 tab Mupirocin (Bactroban Oint) 1 appl NS BID [facility] Stop: 06/23/18 17:01 Last Admin: 06/19/18 09:59 Dose: 1 appl Nitroglycerin (Nitrostat) 0.4 mg SL Q5MIN PRN PRN Reason: Chest Pain Stop: 08/16/18 18:33 Ondansetron HCl (Zofran) 4 mg IV Q8H PRN PRN Reason: Nausea / Vomiting Stop: 08/16/18 18:33 General: alert HEENT: NC/AT, EOMI Neck: Supple Lungs: CTAB Cardiovascular: RRR, Normal S1, Normal S2, without murmur Abdomen: soft, non-tender, non-distended, positive bowel sound Internal Medicine Assmt/Plan - Assessment Assessment: POSSIBLE SYNCOPE FALL GENERALIZED WEAKNESS HTN DEMENTIA HYPOKALEMIA - Plan Plan: continue with pt/ot fall precautions follow up labs in am continue current plan of care
[2018-06-19] MEDS ORDERED: Potassium Chloride 20 mEq ER Tab PO ONE (12:36)
[2018-06-19] MEDS ORDERED: Levofloxacin 500mg/100mL 500 MG/100 ML BAG IV ONE (13:00)
[2018-06-19] MEDS: D5-0.45NS 1,000 ML IV SCH (17:23)
--- NOTE | 2018-06-19 22:59 | Progress Notes ---
DATE: 06/19/2018 Case was discussed with staff of the patient, reviewed records. The patient continues to be depressed, overwhelmed, continues to be in telemetry. She is also demented, confused. 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 Continues to have no energy, no motivation. I initiated Remeron yesterday on her. Also, she is on Lexapro 10 mg daily as well as Aricept 10 mg at bedtime, Namenda 10 mg twice a day with no side effects. The patient denies any intent to harm herself or anybody Thank you very much for allowing me to participate in the care of this most interesting lady. JOB# [id number]
[2018-06-20] MEDS: D5-0.45NS 1,000 ML IV SCH ×2 (00:48→05:27)
[2018-06-20 05:53] LABS: % BASOPHILS 0.7 % (0.0-2.0); % EOSINOPHILS 4.6 % (0.0-5.0); % LYMPHOCYTES 28.3 % (20.0-50.0); % MONOCYTES 8.3 % (2.0-10.0); % NEUTROPHILS 58.1 % (40.0-80.0); EOSINOPHILE ABSOLUTE 0.3 Th/cmm (0.1-0.4); HEMOGLOBIN 15.5 gm/dL (12-16); LYMPHOCYTE ABSOLUTE 1.8 Th/cmm (1.5-3.0); MEAN CELL VOLUME 97.8 fl (81-100); MEAN CORPUSCULAR HEMOGLOBIN 32.9 pg (27.0-31.0); MEAN CORPUSCULAR HGB CONC 33.6 pg (28.0-36.0); MEAN PLATELET VOLUME 10.1 fl; MONOCYTE ABSOLUTE 0.5 Th/cmm (0.3-1.0); NEUTROPHILE ABSOLUTE 3.8 Th/cmm (1.8-8.0); PLATELET COUNT 184 Th/cmm (150-400); RED BLOOD COUNT 4.71 Mil/cmm (3.80-5.20); RED CELL DISTRIBUTION WIDTH 12.7 % (11.5-20.0); WHITE BLOOD COUNT 6.4 Th/cmm (4.8-10.8)
[2018-06-20 06:04] LABS: ANION GAP 12.6 (7.0-16.0); BUN - UREA NITROGEN 13 mg/dL (7-25); CALCIUM SERUM 8.7 mg/dL (8.6-10.3); CARBON DIOXIDE 25.2 mEq/L (21.0-31.0); CHLORIDE 106 mEq/L (98-107); CREATININE - SERUM 0.7 mg/dL (0.6-1.2); GLUCOSE 128 mg/dL (70-105); POTASSIUM SERUM 3.8 mEq/L (3.5-5.1); SODIUM SERUM 140 mEq/L (136-145)
[2018-06-20] MEDS: Multivitamin Tab PO SCH (08:22)
[2018-06-20] MEDS: Venelex 60gm Tube TP SCH (08:24)
--- NOTE | 2018-06-20 12:17 | Discharge Summary ---
DATE OF DISCHARGE: 06/20/2018 CHIEF COMPLAINT: Dizziness, headache, and generalized weakness. FINAL DIAGNOSES: Urinary tract infection, near syncope, history of fall, generalized weakness, hypertension, dementia, and hypokalemia. HISTORY OF PRESENT ILLNESS: This 73-year-old female from nursing facility with history of hypertension and dementia, has been complaining of worsening headaches, dizziness, and ____ also related almost passing out. The patient was admitted through the ER. PHYSICAL EXAMINATION: VITAL SIGNS: Blood pressure 127/80, respirations 20, pulse 70, and temperature ____ GENERAL: An elderly female, appears her stated age. NECK: Supple. No mass. LUNGS: Equal breath sounds, few rhonchi. HEART: Regular rate and rhythm with systolic ejection murmur. ABDOMEN: Soft, globular. EXTREMITIES: Positive excoriations. NEUROLOGIC: Limited. HOSPITAL COURSE: The patient was admitted to the medical floor, given IV hydration. The patient had a head CT, which showed micro ischemic changes of the brain. UA showed urinary tract infection, IV antibiotic, IV hydration and her recent symptoms seem to have improved. CONDITION ON DISCHARGE: Fair. DISCHARGE INSTRUCTIONS: The patient to continue current regimen. The patient will be followed closely ____ nursing facility. JOB# [id number]
[2018-06-20] MEDS ORDERED: Levofloxacin 250mg/50mL 250 MG/50 ML BAG IV SCH (13:00)
--- NOTE | 2018-06-22 13:25 | Cardiology ---
06/18/2018 ECHOCARDIOGRAM REPORT M-MODE ECHOCARDIOGRAM: Mitral valve, anterior leaflet of mitral valve shows normal excursion, EF velocity. Posterior leaflet of the mitral valve shows normal excursion. There is minimal mitral annulus calcification. Left ventricular posterior wall shows increased thickness, normal excursion. Interventricular septum shows increased thickness, normal excursion, minimal hypertrophy of the left ventricle, ejection fraction 55%. Left atrium normal. Aortic root shows normal dimension, normal excursion of aortic leaflets. CONCLUSION: Minimal hypertrophy of the left ventricle, minimal mitral annulus calcification, ejection fraction 55%. TWO-D ECHO: Long axis view showed normal sized left ventricle with minimal hypertrophy of the left ventricle. Mitral valve shows minimal mitral annulus calcification, ejection fraction 55%. Left atrium normal. Aortic root shows normal dimension, normal excursion of aortic leaflets. Short axis view of mitral valve shows minimal mitral annulus calcification. Short axis view of aortic valve normal. Apical four chamber view showed normal sized left ventricle with minimal hypertrophy of the left ventricle. Left atrium normal. Right ventricular cavity, right atrium normal, no pericardial effusion. CONCLUSION: Minimal hypertrophy of the left ventricle, minimal mitral annulus calcification, ejection fraction of 55%. Doppler study shows mild mitral regurgitation, mild tricuspid regurgitation, right ventricular systolic pressure 29 mmHg. [facility]# [id number]
== END 2018-06-20 15:20 | DRG 690 ==
LOC: ER 14:12 → TELE 16:15 → OBSVTOIN 16:15 → MSI 06-19 16:29
PROVIDERS: ADMIT Internal Medicine; ATTEND Internal Medicine
DX: N39.0 Urinary tract infection, site not specified (principal); F33.1 Major depressive disorder, recurrent, moderate; R55 Syncope and collapse; F03.90 Unspecified dementia, unspecified severity, without behavioral disturbance, psychotic disturbance, mood disturbance, and anxiety; I10 Essential (primary) hypertension; I25.10 Atherosclerotic heart disease of native coronary artery without angina pectoris; J45.909 Unspecified asthma, uncomplicated; E87.6 Hypokalemia; W18.30XA Fall on same level, unspecified, initial encounter; Y93.89 Activity, other specified; Y92.89 Other specified places as the place of occurrence of the external cause; Y99.8 Other external cause status; Z79.82 Long term (current) use of aspirin
CPT/HCPCS: 36415-UA; 70450-TC; 71045-TC; 80048-TC; 80053-TC; 81001-TC; 82140-TC; 82607-90; 82746-90; 82948-90; 83605; 83735-TC; 83880-TC; 84443-TC; 84484-TC; 85025-TC; 87086-90; 93005; 93880-TC; 94760; 97530; J1956; X3904; Z7610